=== PATIENT | female | born 1945 | race Caucasian/White ===

== ENCOUNTER → 2018-10-22 | Outpatient (CLI) | payer MEDICARE ==
[2018-10-22 13:32] VITALS: BP 167/74; PULSE 85; RESP 16; TEMP 98.3; BMI 18.4
--- NOTE | 2018-10-22 14:20 | P.GSHP ---
History of Present Illness H&P Date: 10/22/18 Chief Complaint: abnormal ultrasoud right breast Marcie is a 73-year-old white female who on a recent physical examination was noted to have an area of increased nodularity in her right breast. She underwent an ultrasound which revealed a 0.7 x 0.6 cm mass without definitive increased through transmission located within an island of dense tissue. Additionally the patient is noted to have bilateral breast implants present. The patient did have a bilateral breast mammogram which was benign BIRADS 2, mammogram was performed on 10/15/2018. The patient does not feel anything definitive in her breast prior to her primary care doctor finding something. The patient denies any nipple discharge or skin changes. The patient denies any history of trauma or infection in the breast. The patient does have a history of chronic lymphocytic leukemia diagnosed in August 2014. She did have recent IgG infusion related to the leukemia. She is followed by Dr. Street for this, at this time her only treatment as IgG treatments intermittently. 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 MEG 2. gallbladder 3. appy 4. bilateral breast implants (33) 5. exploratory laporatomy Medical History: 1. HTN 2. COPD 3. CLL (chronic of lymphoytic leukemia) 4. skin condition Social History: smoke: 1/PPD for 40 years stopped 7 years ago alcohol: minimal/ patient will wind, Kristin[employer] in her coffee daily drugs: none - Constitutional Constitutional: Denies chills, Denies fever - EENT Eyes: bilateral blurred vision, bilateral pain Ears: bilateral: decreased hearing (can't hear high pitch sounds), deny: tinnitus Ears, nose, mouth and throat: Reports headache - Breasts Breasts: bilateral: as per HPI - Cardiovascular Cardiovascular: Reports high blood pressure, Reports shortness of breath, Denies chest pain - Respiratory Comment: COPD, - Gastrointestinal Gastrointestinal: Reports diarrhea, Denies abdominal pain, Denies nausea, Denies vomiting - Genitourinary (Female) Genitourinary: Denies dysuria, Denies hematuria - Menstruation Menstruation: Reports as per HPI, Reports post hysterectomy - Musculoskeletal Musculoskeletal: Reports myalgias - Integumentary Comment: skin condition, unknown name - Neurological Neurological: Denies numbness, Denies weakness - Psychiatric Psychiatric: Denies anxiety, Denies depression - Endocrine Endocrine: Reports fatigue, Reports weight change - Hematologic/Lymphatic Comment: Ibuprofen, baby aspirin q three days, CLL - Allergic/Immunologic Allergic/Immunologic: Reports as per HPI Past Medical History Past Medical History: Cancer, COPD, Hypertension, Skin Disorder Additional Past Medical History / Comment(s): Chronic lymphocytic leukemia History of Any Multi-Drug Resistant Organisms: None Reported Past Surgical History: Appendectomy, Breast Surgery, Cholecystectomy, Hysterectomy Additional Past Surgical History / Comment(s): Breast implants, laparotomy Past Anesthesia/Blood Transfusion Reactions: Motion Sickness Past Psychological History: PTSD Additional Psychological History / Comment(s): Pt. states claustrophobic Smoking Status: Former smoker Past Alcohol Use History: Occasional Past Drug Use History: None Reported - Past Family History Father Family Medical History: Myocardial Infarction ([place]) Brother(s) Family Medical History: Myocardial Infarction ([place]) Medications and Allergies Home Medications Medication Instructions Recorded Confirmed Type Albuterol Inhaler [Ventolin Hfa 1 - 2 puff INHALATION RT-Q6H PRN 10/15/18 History Inhaler] Albuterol Nebulized [Ventolin 1.25 mg INHALATION DAILY 10/15/18 10/22/18 History Nebulized] Aspirin 81 mg PO DAILY 10/15/18 10/22/18 History Budesonide-Formot 160-4.5 Mcg 2 puff INHALATION BID 10/15/18 10/22/18 History [Symbicort 160-4.5 Mcg Inhaler] Carvedilol [Coreg] 3.125 mg PO BID 10/15/18 10/22/18 History Losartan [Cozaar] 50 mg PO BID 10/15/18 10/22/18 History Tiotropium 18 Mcg/Puff [Spiriva] 1 puff INHALATION DAILY 10/15/18 10/22/18 History amLODIPine [Norvasc] 10 mg PO DAILY 10/15/18 10/22/18 History Cholecalciferol [Vitamin D3] 1,000 unit PO DAILY 10/22/18 10/22/18 History Ibuprofen [Motrin Ib] 200 mg PO DAILY PRN 10/22/18 10/22/18 History Levofloxacin [Levaquin] 500 mg PO DAILY 10/22/18 10/22/18 History Multivitamins, Thera [Multivitamin 1 tab PO DAILY 10/22/18 10/22/18 History (formulary)] diphenhydrAMINE [Benadryl] 25 mg PO HS PRN 10/22/18 10/22/18 History Allergies Allergy/AdvReac Type Severity Reaction Status Date / Time No Known Allergies Allergy Verified 10/22/18 13:19 Surgical - Exam Vital Signs Temp Pulse Resp BP Pulse Ox 98.3 F 85 16 167/74 97 10/22/18 13:25 10/22/18 13:25 10/22/18 13:25 10/22/18 13:25 10/22/18 13:25 BMI 18.5 - General no distress, cachectic - Eyes normal ocular movement - ENT normal pinna, normal nares - Neck Small nodes bilateral anterior neck no masses, trachea midline - Respiratory normal respiratory effort, clear to auscultation - Cardiovascular Rhythm: regular Heart Sounds: normal: S1, S2 - Abdomen Spleen is prominent Abdomen: soft - Integumentary Patient has some ecchymotic areas over her arms bilaterally as well as some dry skin light patches which she has seen a video game producer for and is uncertain of the name of the condition - Neurologic no disoriented, no combative - Musculoskeletal normal gait, normal posture - Psychiatric oriented to time, oriented to person, oriented to place, speech is normal, memory intact Breast examination: Right breast: Patient has a breast implant multi-positional exam reveals some slight increased nodularity at the 10 o'clock position up proximally 6 cm from the nipple areolar complex otherwise no dominant masses or nodules of concern Right axilla: Shoddy adenopathy to the CLL Left breast: Multi-positional exam reveals patient is a implant and no dominant masses or nodules of concern Left axilla: Shoddy adenopathy believed related to the CLL Results Agreement ultrasound results of the breast reviewed Assessment and Plan Assessment: Impression: 1. Radiographic abnormality as well as palpable abnormality right breast 2. Chronic lymphocytic leukemia 3. COPD 4. Ecchymosis and chronic skin condition uncertain of the name Plan: 1. Ultrasound-guided core biopsy of the right breast 2. Medical management of CLL 3. Medical management of medical conditions 4. follow up after biopsy The patient is going to stop her aspirin and ibuprophen prior to biopsy of the breast. She and her daughter understand the risks and benefits and wished to proceed. Cc: Dr. Patino, Dr. Street, Dr. Spangler
== END ==
LOC: WWCWWP 12:23
PROVIDERS: ATTEND Surgery
DX: Z53.9 Procedure and treatment not carried out, unspecified reason (principal)

== ENCOUNTER 2018-11-16 07:53 | Day surgery (SDC) | payer MEDICARE ==
[2018-11-12 13:31] VITALS: BMI 17.9
[~2018-11-16 07:53] MED LIST: ALPRAZolam 0.5 MG TAB PO PRN; DEXAMETHASONE SOD PHOSPHATE 10 MG/ML 1 ML VIAL IV ONE; HEPARIN SODIUM,PORCINE 5,000 UNIT/ML 1 ML VIAL SQ ONE; LACTATED RINGERS 1,000 ML IV SCH; LIDOCAINE 1% 20 ML VIAL (10MG/ML) FOR IV START INTRADERMA PRN; MIDAZOLAM 2 MG/2 ML VIAL IV PRN; Pre Op ABX Message 1 EACH MISC MISCELLANE ONE; fentaNYL (PF) 50 MCG/ML 2 ML AMP IV PRN
[2018-11-16] MEDS ORDERED: ALPRAZolam 0.25 MG TAB PO ONE (09:18)
[2018-11-16] MEDS ORDERED: ONDANSETRON 4 MG/2 ML VIAL IVP ONE (09:18)
[2018-11-16] MEDS ORDERED: LIDOCAINE 1% INJ 10MG/ML (20 ML MDV) SQ ONE ×3 (09:56→12:18)
[2018-11-16] MEDS ORDERED: SODIUM BICARB 4% 5 ML VIAL (0.48 MEQ/ML) MISCELLANE ONE (09:56)
[2018-11-16] MEDS ORDERED: HEPARIN SODIUM,PORCINE 5,000 UNIT/ML 1 ML VIAL SQ ONE (10:51)
--- NOTE | 2018-11-16 10:52 | P.PN ---
Progress Note - Text Progress Note Date: 11/16/18 The patient has a history of CLL. Her case was discussed with Dr. Street. After discussion with Dr. Street it was felt that the patient did not need any preoperative evaluation or treatment of the CLL.
[2018-11-16] MEDS ORDERED: SUCCINYLCHOLINE CHLORIDE 100 MG/5 ML SYR IV ONE (11:26)
[2018-11-16] MEDS ORDERED: LIDOCAINE 1% INJ 10MG/ML (20 ML MDV) ONE (11:26)
[2018-11-16] MEDS ORDERED: fentaNYL (PF) 50 MCG/ML 2 ML AMP ONE (11:26)
[2018-11-16] MEDS ORDERED: PROPOFOL 10 MG/ML 20 ML VIAL IV ONE (11:26)
[2018-11-16] MEDS ORDERED: PHENYLEPHRINE-0.9% NACL SYG 1 MG/10 ML SYRINGE ONE (11:26)
[2018-11-16] MEDS ORDERED: MIDAZOLAM 2 MG/2 ML VIAL ONE (11:26)
--- NOTE | 2018-11-16 12:28 | P.OP ---
Date of Procedure: 11/16/18 Preoperative Diagnosis: Right breast radiographic abnormality Postoperative Diagnosis: Same Procedure(s) Performed: Needle localization excision of lesion of concern and right breast Anesthesia: DAPHNEA Surgeon: Dora Bertrand Estimated Blood Loss (ml): 7 IV fluids (ml): 600 Pathology: other (Breast tissue) Condition: stable Disposition: PACU Indications for Procedure: Radiographic abnormality right breast Operative Findings: Implant close to the area of needle localization Description of Procedure: Marcie is a 73-year-old white female who presented with a mammographic abnormality right breast. The area of concern is very close to the chest wall and very close to the breast implant. After review with radiology they felt the safest approach was needle localization and excision in the operating room secondary to the location. This was discussed with the patient and she agreed. The risks and benefits of the procedure were discussed with the patient. The patient was seen in the radiology department and needle localization of the area of concern was performed. The patient was taken to the operating room and following induction of anesthesia the right breast was prepped and draped in a sterile fashion. An incision was made and carried down to the shaft of the needle. This was brought into the incision and using an Allis the area of the distal end of the needle was grasped. Using the electrocautery device dissection was performed close to the area of the chest wall and of the implant. The area of concern was removed. After we were assured that hemostasis was attained a titanium clip was placed to aimee the area. The deep tissues were closed using 3-0 Vicryl suture. The skin was closed using 4-0 Monocryl. The specimen was sent to radiology for confirmation the area of concern had been removed was obtained. Prior to this the specimen was painted. It should be noted the specimen was very small and the paint overlapped each other at some margins this was discussed with pathology. All instrument and sponge counts were correct at the end of the case. The patient tolerated the case in stable condition.
--- NOTE | 2018-11-16 12:30 | P.DS ---
Providers Attending physician: Dora Bertrand Primary care physician: Rosa M Pina Plan - Discharge Summary Discharge Rx Participant: No New Discharge Prescriptions: No Action Aspirin 81 mg PO DAILY Budesonide-Formot 160-4.5 Mcg [Symbicort 160-4.5 Mcg Inhaler] 2 puff INHALATION BID Albuterol Inhaler [Ventolin Hfa Inhaler] 1 - 2 puff INHALATION RT-Q6H PRN PRN Reason: Shortness Of Breath amLODIPine [Norvasc] 10 mg PO DAILY Tiotropium 18 Mcg/Puff [Spiriva] 1 puff INHALATION DAILY Carvedilol [Coreg] 3.125 mg PO BID Losartan [Cozaar] 50 mg PO BID Albuterol Nebulized [Ventolin Nebulized] 1.25 mg INHALATION DAILY PRN PRN Reason: copd sx diphenhydrAMINE [Benadryl] 25 mg PO HS PRN PRN Reason: Sedation Multivitamins, Thera [Multivitamin (formulary)] 1 tab PO DAILY Levofloxacin [Levaquin] 500 mg PO DAILY PRN PRN Reason: FEVER, SIGN OF INFECTION Ibuprofen [Motrin Ib] 400 mg PO DAILY PRN PRN Reason: Pain Cholecalciferol [Vitamin D3] 1,000 unit PO DAILY Discharge Medication List Albuterol Inhaler [Ventolin Hfa Inhaler] 1 - 2 puff INHALATION RT-Q6H PRN [History] Albuterol Nebulized [Ventolin Nebulized] 1.25 mg INHALATION DAILY PRN 10/15/18 [ History] Aspirin 81 mg PO DAILY 10/15/18 [History] Budesonide-Formot 160-4.5 Mcg [Symbicort 160-4.5 Mcg Inhaler] 2 puff INHALATION BID 10/15/18 [History] Carvedilol [Coreg] 3.125 mg PO BID 10/15/18 [History] Losartan [Cozaar] 50 mg PO BID 10/15/18 [History] Tiotropium 18 Mcg/Puff [Spiriva] 1 puff INHALATION DAILY 10/15/18 [History] amLODIPine [Norvasc] 10 mg PO DAILY 10/15/18 [History] Cholecalciferol [Vitamin D3] 1,000 unit PO DAILY 10/22/18 [History] Ibuprofen [Motrin Ib] 400 mg PO DAILY PRN 10/22/18 [History] Levofloxacin [Levaquin] 500 mg PO DAILY PRN 10/22/18 [History] Multivitamins, Thera [Multivitamin (formulary)] 1 tab PO DAILY 10/22/18 [History ] diphenhydrAMINE [Benadryl] 25 mg PO HS PRN 10/22/18 [History] Follow up Appointment(s)/Referral(s): Dora Bertrand MD [STAFF PHYSICIAN] - 1 Week Activity/Diet/Wound Care/Special Instructions: Patient may shower after 48 hours Wear bra at all times until seen by Dr. Jason unless showering Discharge Disposition: HOME SELF-CARE
[2018-11-16 12:48] VITALS: TEMP 98.6
[2018-11-16 13:03] VITALS: RESP 18
[2018-11-16] MEDS ORDERED: SODIUM CHLORIDE 0.9% 1,000 ML IV ONE (13:18)
[2018-11-16 13:58] VITALS: PULSE 100
[2018-11-16 14:07] VITALS: BP 142/65
--- NOTE | 2018-11-16 15:00 | USB ---
EXAMINATION TYPE: US breast localization RT DATE OF EXAM: 11/16/2018 COMPARISON: Outside ultrasound 09/30/2018 CLINICAL HISTORY: N63, PALP MASS, R92.8, ABN MAMM. Technique: Real-time linear array sonography over the right breast upper outer quadrant Findings: The lobular hypoechoic areas again identified near the junction of the breast prosthesis with chest wall. The procedure was explained to the patient. The risks complications and benefits , questions were answered. Written and verbal informed consent was obtained. The risk of prosthesis puncture with the needle or wire from localization, the the needle for anastomosis is a shallow was discussed. The patient was to proceed. Timeout was performed. Under ultrasound guidance following anesthetization 4% lidocaine with sodium bicarbonate needle was placed into the lesion at the 10:00 position. The wire was placed through the needle under ultrasound guidance. At the request the referring physician a mammogram post procedure was obtained. Wire is within the right breast. Patient was transferred to presurgical holding having tolerated procedure very well. Specimen: Ultrasound specimen is obtained. There is a wire present within the specimen. The distal tip of the wire appears to be visualized within the lesion localized. IMPRESSIONS: 1. Successful ultrasound-guided wire localization right breast lesion o'clock position Recommendations: 1. Recommendations are pending pathology results. Pathology Results: Benign A. RIGHT BREAST, NEEDLE LOCALIZATION, LUMPECTOMY: Proliferative fibrocystic spectrum changes including usual duct hyperplasia. B. RIGHT BREAST TISSUE, EXCISION: Proliferative spectrum fibrocystic changes with areas of usual duct hyperplasia showing significant biopsy artifact. Recommendation Follow up mammogram of the right breast in 6 months. JAN
--- NOTE | 2018-11-16 15:01 | USB ---
EXAMINATION TYPE: US breast localization RT DATE OF EXAM: 11/16/2018 COMPARISON: Outside ultrasound 09/30/2018 CLINICAL HISTORY: N63, PALP MASS, R92.8, ABN MAMM. Technique: Real-time linear array sonography over the right breast upper outer quadrant Findings: The lobular hypoechoic areas again identified near the junction of the breast prosthesis wi th chest wall. The procedure was explained to the patient. The risks complications and benefits, questions were answ ered. Written and verbal informed consent was obtained. The risk of prosthesis puncture with the need le or wire from localization, the the needle for anastomosis is a shallow was discussed. The patient was to proceed. Timeout was performed. Under ultrasound guidance following anesthetization 4% lidocaine with sodium bicarbonate needle was p laced into the lesion at the 10:00 position. The wire was placed through the needle under ultrasound guidance. At the request the referring physician a mammogram post procedure was obtained. Wire is within the ri ght breast. Patient was transferred to presurgical holding having tolerated procedure very well. Specimen: Ultrasound specimen is obtained. There is a wire present within the specimen. The distal ti p of the wire appears to be visualized within the lesion localized. IMPRESSIONS: 1. Successful ultrasound-guided wire localization right breast lesion o'clock position Recommendations: 1. Recommendations are pending pathology results.
--- NOTE | 2018-11-16 15:07 | MM ---
Reason for exam: additional evaluation requested from abnormal screening. [facility] Diagnostic Mammo RT Wo CAD CC and LM view(s) were taken of the right breast. ASSESSMENT: Post procedure mammogram for marker placement RECOMMENDATION: Ultrasound of the right breast in 6 months. PENDING PATHOLOGY RESULTS.
== END 2018-11-16 14:30 | disposition home or self-care (01) ==
LOC: OR 07:53
PROVIDERS: ATTEND Surgery
DX: N60.11 Diffuse cystic mastopathy of right breast (principal); N60.91 Unspecified benign mammary dysplasia of right breast; Z98.82 Breast implant status; C91.10 Chronic lymphocytic leukemia of B-cell type not having achieved remission; J44.9 Chronic obstructive pulmonary disease, unspecified; R58 Hemorrhage, not elsewhere classified; L98.9 Disorder of the skin and subcutaneous tissue, unspecified; I10 Essential (primary) hypertension; F43.10 Post-traumatic stress disorder, unspecified; Z79.82 Long term (current) use of aspirin; Z79.51 Long term (current) use of inhaled steroids; Z79.899 Other long term (current) drug therapy; Z79.2 Long term (current) use of antibiotics; Z90.49 Acquired absence of other specified parts of digestive tract; Z90.710 Acquired absence of both cervix and uterus; Z87.891 Personal history of nicotine dependence
CPT/HCPCS: 77065; 76999; 19285; 19125; J2250; J1644; J1100; J2405; J2001; J3010; J2370; J0330; J2704; 88305; 88307

== ENCOUNTER → 2018-11-26 | Outpatient (CLI) | payer MEDICARE ==
[2018-11-26 11:04] VITALS: BP 137/70; PULSE 87; RESP 18; TEMP 98.1; BMI 18.1
--- NOTE | 2018-11-26 11:32 | P.PN ---
Subjective Progress Note Date: 11/26/18 Marcie is a 73-year-old white female who is status post right breast needle local excisional biopsy of an area of concern. This was done 11-16-18. Pathology revealed proliferative fibrocystic spectrum changes with usual ductal hyperplasia. The patient has no complaints related to the biopsy at this time. The lesion was very close to a subpectoral implant and the pectoralis muscle. There was a probable change as well as radiographic abnormality, both of which were removed and the same biopsy. I discussed with the patient and her daughter that we certainly sampled the area but there is some concern as there is nothing benign specific that biopsy of the actual lesion was preformed. They understand this and at this time we are going to wait and repeat the mammogram and ultrasound of the right breast in 6 months. Objective - Vital Signs Vital signs: Vital Signs Temp 98.1 F 11/26/18 10:58 Pulse 87 11/26/18 10:58 Resp 18 11/26/18 10:58 BP 137/70 11/26/18 10:58 Pulse Ox 94 L 11/26/18 10:58 Intake & Output 11/25/18 11/26/18 11/26/18 18:59 06:59 18:59 Weight 50.802 kg - Constitutional General appearance: Present: thin - EENT Eyes: Present: EOMI ENT: Present: hearing grossly normal - Respiratory Respiratory: bilateral: CTA - Cardiovascular Rhythm: regular Heart sounds: normal: S1, S2 - Integumentary Integumentary Comment(s): Incision clean and dry No evidence of infection No ecchymosis or hematoma - Psychiatric Psychiatric: Present: A&O x's 3, appropriate affect, intact judgment & insight Assessment and Plan Assessment: Impression: 1. Radiographic abnormality as well as palpable change right breast removed via open biopsy 2. CLL 3. Disseminated superficial actinic porokeratosis 4. COPD Plan: 1. Benign pathology on open biopsy right breast 2. Repeat right breast mammogram and ultrasound in 6 months 3. Medical management of medical conditions Cc: Dr. Patino
== END ==
LOC: WWCWWP 11-25 11:33
PROVIDERS: ATTEND Surgery
DX: Z53.9 Procedure and treatment not carried out, unspecified reason (principal)

== ENCOUNTER 2021-04-24 11:42 | Observation (INO) | payer MEDICARE ==
[2021-04-24] MEDS ORDERED: HYDROmorphone 0.5 MG/0.5 ML SYRINGE IVP PRN (12:16)
[2021-04-24] MEDS ORDERED: ONDANSETRON 4 MG/2 ML VIAL IVP PRN ×2 (12:16→13:25)
[2021-04-24] MEDS ORDERED: NALOXONE 0.4 MG/ML 1 ML VIAL IV PRN (12:16)
--- NOTE | 2021-04-24 12:16 | ED ---
General Adult HPI - General Chief complaint: Abdominal Pain Stated complaint: abd pain Time Seen by Provider: 04/24/21 11:53 Source: patient, RN/MD (I did speak with transferring physician), RN notes reviewed, old records reviewed (Reports reviewed from [facility]) Mode of arrival: ambulatory Limitations: no limitations - History of Present Illness Initial comments: Patient is a pleasant 75-year-old female presenting to the emergency Department with complaints of abdominal discomfort. Symptoms started around 3 days ago. Symptoms are somewhat similar to her previous gallbladder problems which were is removed years ago. Patient was seen at [facility] today with abnormal computed tomography scan and was transferred to us for GI evaluation. Patient states following medication discomfort is improved and is only mild at this time. Patient has had some mild nausea, no vomiting, none at this time. No fevers. - Related Data Home Medications Medication Instructions Recorded Confirmed Albuterol Inhaler (Mhu) [Ventolin 1 - 2 puff INHALATION RT-Q6H PRN 10/15/18 11/26/18 Hfa Inhaler] Albuterol Nebulized [Ventolin 1.25 mg INHALATION DAILY PRN 10/15/18 11/26/18 Nebulized] Budesonide-Formot 160-4.5 Mcg 2 puff INHALATION BID 10/15/18 11/26/18 [Symbicort 160-4.5 Mcg Inhaler] Losartan [Cozaar] 50 mg PO BID 10/15/18 11/26/18 Tiotropium 18 Mcg/Puff [Spiriva] 1 puff INHALATION DAILY 10/15/18 11/26/18 amLODIPine [Norvasc] 10 mg PO DAILY 10/15/18 11/26/18 carvediloL [Coreg] 3.125 mg PO BID 10/15/18 11/26/18 Cholecalciferol [Vitamin D3] 1,000 unit PO DAILY 10/22/18 11/26/18 Ibuprofen [Motrin Ib] 400 mg PO DAILY PRN 10/22/18 11/26/18 Levofloxacin [Levaquin] 500 mg PO DAILY PRN 10/22/18 11/26/18 Multivitamins, Thera [Multivitamin 1 tab PO DAILY 10/22/18 11/26/18 (formulary)] diphenhydrAMINE [Benadryl] 25 mg PO HS PRN 10/22/18 11/26/18 Allergies Allergy/AdvReac Type Severity Reaction Status Date / Time No Known Allergies Allergy Verified 04/24/21 11:46 Review of Systems ROS Statement: Those systems with pertinent positive or pertinent negative responses have been documented in the HPI. ROS Other: All systems not noted in ROS Statement are negative. Constitutional: Denies: fever Eyes: Denies: eye pain ENT: Denies: ear pain Respiratory: Denies: cough Cardiovascular: Denies: chest pain Endocrine: Denies: fatigue Gastrointestinal: Reports: as per HPI, abdominal pain. Denies: vomiting Genitourinary: Denies: dysuria Musculoskeletal: Denies: back pain Skin: Denies: rash Neurological: Denies: weakness Past Medical History Past Medical History: Cancer, COPD, Hypertension, Skin Disorder Additional Past Medical History / Comment(s): Chronic lymphocytic leukemia. CYST RT KIDNEY. BURSITIS SHOULDERS. DISSEMINATED ACTINIC POROKERATOSIS SKIN COND, CHUCKY ARMS. BRUISES EASILY. RT BREAST MASS CURRENTLY. History of Any Multi-Drug Resistant Organisms: None Reported Past Surgical History: Appendectomy, Breast Surgery, Cholecystectomy, Hysterectomy Additional Past Surgical History / Comment(s): Breast implants, laparotomy Past Anesthesia/Blood Transfusion Reactions: Motion Sickness Past Psychological History: PTSD Smoking Status: Never smoker Past Alcohol Use History: Occasional Past Drug Use History: None Reported - Past Family History Father Family Medical History: Myocardial Infarction ([place]) Brother(s) Family Medical History: Myocardial Infarction ([place]) General Exam Limitations: no limitations General appearance: alert, in no apparent distress Head exam: Present: normocephalic Eye exam: Present: normal appearance Respiratory exam: Present: normal lung sounds bilaterally Cardiovascular Exam: Present: regular rate GI/Abdominal exam: Present: soft, tenderness (Mild to moderate epigastric tenderness). Absent: distended Extremities exam: Present: normal inspection Neurological exam: Present: alert Psychiatric exam: Present: normal affect, normal mood Skin exam: Present: normal color Course Vital Signs 04/24/21 11:44 Temperature 98.2 F Pulse Rate 95 Respiratory 20 Rate Blood Pressure 155/77 O2 Sat by Pulse 97 Oximetry Medical Decision Making - Medical Decision Making Patient updated on results and plan. Case was discussed in detail with Dr. villanueva, who will admit covered for Dr. Palm. Disposition Clinical Impression: Dilated bile duct Disposition: ADMITTED IP TO THIS HOSP Is patient prescribed a controlled substance at d/c from ED?: No Referrals: Anne Marie Palm MD [Primary Care Provider] - 1-2 days Decision Time: 12:15
[2021-04-24] MEDS ORDERED: SODIUM CHLORIDE 0.9% 1,000 ML IV SCH (12:30)
[2021-04-24] MEDS ORDERED: MIRTAZAPINE 15 MG TAB PO PRN (13:23)
[2021-04-24] MEDS ORDERED: PANTOPRAZOLE 40 MG TABLET PO PRN (13:23)
[2021-04-24] MEDS ORDERED: Acetaminophen-Codeine 300-30mg TAB PO PRN (13:23)
[2021-04-24] MEDS: LACTATED RINGERS 1,000 ML IV SCH ×2 (13:42→20:44)
[2021-04-24] MEDS ORDERED: ENOXAPARIN 40 MG/0.4 ML SYRINGE SQ SCH (13:45)
[2021-04-24] MEDS ORDERED: diazePAM 5 MG TAB PO STA (14:17)
[2021-04-24] MEDS ORDERED: HYDROmorphone 1 MG/ML 1 ML SYRINGE IVP PRN (14:29)
--- NOTE | 2021-04-24 15:33 | P.CONS ---
History of Present Illness - Reason for Consult Consult date: 04/24/21 CBD dilation Requesting physician: Giovani Winn - Chief Complaint Abdominal pain - History of Present Illness This is a pleasant 75-year-old white female who was a transfer from [facility] for complaints of abdominal pain, she is status post cholecystectomy in the for cholelithiasis. She had a CT of the abdomen after [facility] that showed status post cholecystectomy with extrahepatic and intrahepatic biliary ductal dilation. There is diffuse increased common bile duct dilation measuring up to 9 mm, versus 05/15/2020 CT comparison went it measured up to 6 mm. Recommend MRCP with and without contrast for further evaluation. In determining hypodense lesion of the right kidney measuring 2.0 cm, findings could be further evaluated on follow-up MRCP. Redemonstrated. Portal lymphadenopathy and splenomegaly. The patient states she had severe epigastric pain that is radiating to her back and along her chest that started Thursday night that is associated with nausea and bilious vomiting. She has no history of peptic ulcer disease, no prior EGDs, no NSAID use, and denies any anticoagulation. Today's labs at [facility] showed WBC 13.18, hemoglobin 14.5, hematocrit 44.9, platelet count 146,000, INR 1.03, total bilirubin 0.5, alkaline phosphatase 80, AST 22, ALT 21, lipase 27. Review of Systems REVIEW OF SYSTEMS: CARDIOPULMONARY: No chest pain or shortness of breath. Gastrointestinal: Sharp epigastric pain associated with nausea and vomiting. No hematemesis, coffee-ground emesis. No rectal bleeding, or melena. GENITOURINARY: No dysuria or hematuria. MUSCULOSKELETAL: Reports normal range of motion., Joint pain. SKIN: No rashes. No jaundice. ENDOCRINE: No chills, fevers. No excessive weight gain or loss. No polydipsia or polyuria. PSYCHIATRIC: Unremarkable. NEUROLOGY: No change in mental status. Denies dizziness, headache. ENT: Vision unremarkable. CONSTITUTIONAL: No recent weight loss. No fever, chills, night sweats. Past Medical History Past Medical History: Cancer, COPD, Hypertension, Skin Disorder Additional Past Medical History / Comment(s): Chronic lymphocytic leukemia. CYST RT KIDNEY. BURSITIS SHOULDERS. DISSEMINATED ACTINIC POROKERATOSIS SKIN COND, CHUCKY ARMS. BRUISES EASILY. RT BREAST MASS CURRENTLY. History of Any Multi-Drug Resistant Organisms: None Reported Past Surgical History: Appendectomy, Breast Surgery, Cholecystectomy, Hysterectomy Additional Past Surgical History / Comment(s): Breast implants, laparotomy Past Anesthesia/Blood Transfusion Reactions: Motion Sickness Past Psychological History: Anxiety, PTSD Additional Psychological History / Comment(s): Pt. states claustrophobic Smoking Status: Former smoker Past Alcohol Use History: Occasional Additional Past Alcohol Use History / Comment(s): SMOKED 40 YEARS, 1 PPD, QUIT 2011 Past Drug Use History: None Reported - Past Family History Father Family Medical History: Myocardial Infarction ([place]) Brother(s) Family Medical History: Myocardial Infarction ([place]) Medications and Allergies Home Medications Medication Instructions Recorded Confirmed Type Tiotropium 18 Mcg/Puff [Spiriva] 1 puff INHALATION RT-DAILY 10/15/18 04/24/21 History amLODIPine [Norvasc] 10 mg PO DAILY 10/15/18 04/24/21 History Cholecalciferol [Vitamin D3] 5,000 unit PO DAILY 10/22/18 04/24/21 History Levofloxacin [Levaquin] 500 mg PO DAILY PRN 10/22/18 04/24/21 History Multivitamins, Thera [Multivitamin 1 tab PO DAILY 10/22/18 04/24/21 History (formulary)] Acetaminophen-Codeine 300-30mg 1 tab PO Q8H PRN 04/24/21 04/24/21 History [Tylenol w/codeine #3] Albuterol Sulfate [Ventolin HFA] 2 puff INHALATION RT-Q4H PRN 04/24/21 04/24/21 History Budesonide/Formoterol Fumarate 2 puff INHALATION RT-BID 04/24/21 04/24/21 History [Symbicort 80-4.5 Mcg Inhaler] Losartan Potassium 100 mg PO DAILY 04/24/21 04/24/21 History Mirtazapine [Remeron] 15 mg PO HS PRN 04/24/21 04/24/21 History Omeprazole 40 mg PO DAILY PRN 04/24/21 04/24/21 History Ondansetron [Zofran] 4 mg PO Q6H PRN 04/24/21 04/24/21 History Allergies Allergy/AdvReac Type Severity Reaction Status Date / Time No Known Allergies Allergy Verified 04/24/21 12:37 Physical Exam Vitals: Vital Signs Temp Pulse Pulse Resp BP BP Pulse Ox 04/24/21 14:00 98.0 F 98 19 170/81 92 L 04/24/21 11:44 98.2 F 95 20 155/77 97 Intake and Output 04/24/21 04/24/21 04/24/21 06:59 14:59 22:59 Other: Weight 50.802 kg General appearance: The patient is alert, oriented, appears in no acute distress. HET: Head is normocephalic and atraumatic. Conjunctiva pink. Sclera anicteric. Neck: Supple without lymphadenopathy. Trachea midline. Heart: S1 S2. Regular rate and rhythm. Lungs: Clear to auscultation. Abdomen: Soft, epigastric tenderness, nondistended with bowel sounds. No guarding or rigidity. Skin: No rashes. No jaundice. Extremities: Normal skin color and turgor. No pedal edema. Neurological: No focal deficits. Alert and oriented 3.. Assessment and Plan (1) Abdominal pain Narrative/Plan: 45-year-old female who is a transfer from [facility] with complaints of severe epigastric pain, who is status post cholecystectomy in the for cholelithiasis. Patient states pain started Thursday night and is sharp in the epigastric region. She has had associated nausea and vomiting, denies any coffee-ground emesis or hematemesis. She has no previous history of peptic ulcer disease, no previous upper endoscopies or NSAID use. She had a CT of the abdomen at [facility] that shows she is status post cholecystectomy with extrahepatic and intrahepatic biliary ductal dilation. Diffused increased common bile duct dilation measuring up to 9 mm, versus 05/15/2020 CT comparison when it measured up to 6 mm, recommend MRCP with and without contrast. Patient was transferred to undergo MRCP. LFTs are unremarkable. Labs are not consistent with CBD obstruction, will proceed with MRCP. Current Visit: Yes Status: Acute Code(s): R10.9 - UNSPECIFIED ABDOMINAL PAIN SNOMED Code(s): 14081861 (2) Dilated bile duct Current Visit: Yes Status: Acute Code(s): K83.8 - OTHER SPECIFIED DISEASES OF BILIARY TRACT SNOMED Code(s): 388778061 Plan: 1. May have clear liquid diet after MRCP then nothing by mouth after midnight 2. MRCP ordered 3. Continue symptomatic and supportive care 4. Pain medications as needed 5. Repeat CMP in the morning 6. Please give Valium 5 mg prior to MRCP for symptoms of claustrophobia Thank you for this consultation, we will continue to follow Dr. Stefania Alvarado I agree with the dictator's note, documented as a scribe by Gretchen Mejia.
--- NOTE | 2021-04-24 17:24 | P.HPIM ---
History of Present Illness H&P Date: 04/24/21 Chief Complaint: Upper abdominal pain History of presenting complaint: This is a very pleasant 75-year-old patient who follows with Dr. Sheba Palm. Chronic stable medical conditions include CLL that she follows with Dr. Lipscomb while, hypertension, osteoarthritis, COPD with Dr. Spangler. Patient on home oxygen 2 L at night. Patient is accompanied by her daughter at the bedside. Patient started to have progressively worsening epigastric pain for 3 days. Describes it being sharp. Going through the back. Patient initially transferred to [facility] where she did have a computed tomography scan. She is fine to have intermittent or extrahepatic biliary duct dilatation and common bile duct 9 mm. She was transferred here for further workup. Denies any fever and chills. Patient has a prior history of cholecystectomy. GI was consulted. Patient's had a decreased appetite for some time. No obvious weight loss. Review of systems: GEN.: Tired EYES: None HEENT: None NECK: None RESPIRATORY: None CARDIOVASCULAR: None GASTROINTESTINAL: [As above GENITOURINARY: None MUSCULOSKELETAL: Joint pains LYMPHATICS: None HEMATOLOGICAL: None PSYCHIATRY: None NEUROLOGICAL: None Past medical history to include: COPD, hypertension, CLL, shoulder bursitis, actinic keratosis, right breast mass being worked up, anxiety Social history: Lives with her daughter. Smoked a pack a day for 40 years stopped in 2011. Alcohol occasionally. Family history: Myocardial infarction Physical examination: VITAL SIGNS: 98.2, 95, 20, 155/77, 97% room air GENERAL: BMI 18.1, sitting on bed, uncomfortable throwing up. EYES: Pupils equal. Conjunctiva normal. HEENT: External appearance of nose and ears normal, oral cavity grossly normal. NECK: JVD not raised; masses not palpable. HEART: First and second heart sounds are normal; no edema. LUNGS: Respiratory rate normal; decreased breath sound. ABDOMEN: Soft, epigastric tenderness, no guarding rigidity, liver spleen not palpable, no masses palpable. PSYCH: [Alert and oriented x3; mood and affect slightly anxious l. MUSCULAR skeletal: Evidence of OA NEUROLOGICAL: Cranial nerves grossly intact; no facial asymmetry, power and sensation grossly intact. LYMPHATICS: No lymph nodes palpable in the axilla and neck INVESTIGATIONS, reviewed in the clinical context: [From [facility]] White count 13.1 hemoglobin 14.5 platelets 146 sodium 138 potassium 3.8 BUN 10 creatinine 0.86 AST 22 ALT 21 troponin I less than 0.03, bilirubin 0.5 UA unremarkable EKG tracing personally reviewed by me-normal sinus rhythm Computed tomography scan of the abdomen showing extra and intrahepatic biliary dilatation, CBD 9 mm. Cholecystectomy. Periportal lymphadenopathy and splenomegaly Assessment and plan: -Severe patient presented to 3 days of increasing epigastric pain associated with nausea vomiting. Has history of cholecystectomy along with dilated intra- and extrahepatic. Duct dilatation, common bile duct dilatation. LFTs and bilirubin is normal. No fever no chills. Periportal lymphadenopathy. Stenosis/mass at the junction of the pancreas in the differential. No clinical evidence of infection at this point. GI consulted. -COPD in a ex-smoker Continue Symbicort, bronchodilator -Essential hypertension Continue amlodipine, losartan -Chronic lymphocytic leukemia Follow CBC. Patient does follow with Dr. Perkins /outpatient. -Actinitic keratosis -Chronic insomnia On Remeron Patient put on IV fluids. Nothing by mouth except for ice chips. GI consulted. Zofran for nausea. Home medications resumed. Dilaudid for pain medication. Hold off any antibiotics for now. Lovenox for DVT prophylaxis. Care was discussed with the patient daughter the bedside. Questions answered. - Past Medical History Past Medical History: Cancer, COPD, Hypertension, Skin Disorder Additional Past Medical History / Comment(s): Chronic lymphocytic leukemia. CYST RT KIDNEY. BURSITIS SHOULDERS. DISSEMINATED ACTINIC POROKERATOSIS SKIN COND, CHUCKY ARMS. BRUISES EASILY. RT BREAST MASS CURRENTLY. History of Any Multi-Drug Resistant Organisms: None Reported Past Surgical History: Appendectomy, Breast Surgery, Cholecystectomy, Hysterectomy Additional Past Surgical History / Comment(s): Breast implants, laparotomy Past Anesthesia/Blood Transfusion Reactions: Motion Sickness Past Psychological History: Anxiety, PTSD Additional Psychological History / Comment(s): Pt. states claustrophobic Smoking Status: Former smoker Past Alcohol Use History: Occasional Additional Past Alcohol Use History / Comment(s): SMOKED 40 YEARS, 1 PPD, QUIT 2011 Past Drug Use History: None Reported - Past Family History Father Family Medical History: Myocardial Infarction ([place]) Brother(s) Family Medical History: Myocardial Infarction ([place]) Medications and Allergies Home Medications Medication Instructions Recorded Confirmed Type Tiotropium 18 Mcg/Puff [Spiriva] 1 puff INHALATION RT-DAILY 10/15/18 04/24/21 History amLODIPine [Norvasc] 10 mg PO DAILY 10/15/18 04/24/21 History Cholecalciferol [Vitamin D3] 5,000 unit PO DAILY 10/22/18 04/24/21 History Levofloxacin [Levaquin] 500 mg PO DAILY PRN 10/22/18 04/24/21 History Multivitamins, Thera [Multivitamin 1 tab PO DAILY 10/22/18 04/24/21 History (formulary)] Acetaminophen-Codeine 300-30mg 1 tab PO Q8H PRN 04/24/21 04/24/21 History [Tylenol w/codeine #3] Albuterol Sulfate [Ventolin HFA] 2 puff INHALATION RT-Q4H PRN 04/24/21 04/24/21 History Budesonide/Formoterol Fumarate 2 puff INHALATION RT-BID 04/24/21 04/24/21 History [Symbicort 80-4.5 Mcg Inhaler] Losartan Potassium 100 mg PO DAILY 04/24/21 04/24/21 History Mirtazapine [Remeron] 15 mg PO HS PRN 04/24/21 04/24/21 History Omeprazole 40 mg PO DAILY PRN 04/24/21 04/24/21 History Ondansetron [Zofran] 4 mg PO Q6H PRN 04/24/21 04/24/21 History Allergies Allergy/AdvReac Type Severity Reaction Status Date / Time No Known Allergies Allergy Verified 04/24/21 12:37 Physical Exam Vitals: Vital Signs Temp Pulse Pulse Resp BP BP Pulse Ox 04/24/21 14:00 98.0 F 98 19 170/81 92 L 04/24/21 11:44 98.2 F 95 20 155/77 97 Intake and Output 04/24/21 04/24/21 04/24/21 06:59 14:59 22:59 Other: Weight 50.802 kg Thrombosis Risk Factor Assmnt - Choose All That Apply Each Factor Represents 1 point: Abnormal pulmonary function (COPD) Each Risk Factor Represents 3 Points: Age 75 years or older Thrombosis Risk Factor Assessment Total Risk Factor Score: 4 Thrombosis Risk Factor Assessment Level: Moderate Risk
[2021-04-24] MEDS ORDERED: METOCLOPRAMIDE 5 MG/ML 2 ML VIAL IVP PRN (17:26)
[2021-04-24] MEDS: HYDROmorphone 1 MG/ML 1 ML SYRINGE IVP PRN (17:55)
[2021-04-24] MEDS: FAMOTIDINE 20 MG TAB PO SCH (20:45)
--- NOTE | 2021-04-24 21:38 | XR ---
EXAMINATION TYPE: XR chest 2V DATE OF EXAM: 04/24/2021 COMPARISON: 02/18/2013 INDICATION: COPD TECHNIQUE: Frontal and lateral views of the chest are obtained. FINDINGS: The heart size is normal. The pulmonary vasculature is normal. Mild increased lung markings are in the bilateral lung bases. Calcified breast prostheses are superim posed accentuating these findings. Consider some mild atelectasis or developing noncardiogenic pulmon jeannine edema. IMPRESSION: 1. Increased density at the lung bases accentuated by overlying breast prostheses. Consider mild atel ectasis or atypical noncardiogenic pulmonary edema. Follow-up can be performed as clinically indicate d.
[2021-04-24] MEDS: SYMBICORT 80-4.5 MCG INHALER INHALATION SCH (21:56)
[2021-04-24] MEDS: IPRATROPIUM-ALBUTEROL 3 ML NEB INHALATION SCH (21:56)
[2021-04-25] MEDS: LACTATED RINGERS 1,000 ML IV SCH ×3 (00:20→22:25)
[2021-04-25 06:42] LABS: Prothrombin Time 10.9 sec (9.0-12.0)
[2021-04-25] MEDS: amLODIPine 10 MG TAB PO SCH (07:40)
[2021-04-25] MEDS: HYDROmorphone 1 MG/ML 1 ML SYRINGE IVP PRN (07:40)
[2021-04-25] MEDS: LOSARTAN 50 MG TAB PO SCH (07:40)
[2021-04-25] MEDS: FAMOTIDINE 20 MG TAB PO SCH (07:40)
[2021-04-25 08:57] LABS: Basophils # (A) 0.03 X 10*3/uL (0.00-0.10); Basophils % (A) 0.3 %; Eosinophils # (A) 0.03 X 10*3/uL (0.04-0.35); Eosinophils % (A) 0.3 %; HCT 41.4 % (37.2-46.3); HGB 13.1 g/dL (12.0-15.0); Lymphocytes # (A) 2.87 X 10*3/uL (0.90-5.00); Lymphocytes % (A) 27.6 %; MCH 27.9 pg (27.0-32.0); MCHC 31.6 g/dL (32.0-37.0); MCV 88.1 fL (80.0-97.0); Mean Platelet Volume 10.7 fL (9.5-12.2); Monocytes % (A) 6.7 %; Neutrophils # (A) 6.72 X 10*3/uL (1.80-7.70); Neutrophils % (A) 64.5 %; Platelet Count 119 X 10*3/uL (140-440); RDW 13.3 % (11.5-14.5); WBC 10.41 X 10*3/uL (4.50-10.00)
[2021-04-25] MEDS ORDERED: PANTOPRAZOLE 40 MG/10 ML VIAL IV SCH (09:00)
[2021-04-25] MEDS: IPRATROPIUM-ALBUTEROL 3 ML NEB INHALATION SCH ×3 (09:06→19:32)
[2021-04-25] MEDS: SYMBICORT 80-4.5 MCG INHALER INHALATION SCH ×2 (09:06→19:32)
[2021-04-25 10:51] LABS: African American GFR (CKD) 97.5 (60.0-200.0); Albumin 4.4 g/dL (3.80-4.90); Albumin/Globulin Ratio 2.32 (1.60-3.17); Anion Gap 12.3 mmol/L (4.00-12.00); BUN/Creat Ratio 14.29 Ratio (12.00-20.00); Calcium 8.6 mg/dL (8.7-10.3); Carbon Dioxide 21.7 mmol/L (21.6-31.8); Globulin 1.9 g/dL (1.6-3.3); Non-African American GFR(CKD) 84.2 (60.0-200.0); Potassium 3.9 mmol/L (3.5-5.5); Total Bilirubin 0.6 mg/dL (0.2-1.2); Total Protein 6.3 g/dL (6.2-8.2)
[2021-04-25] MEDS ORDERED: LIDOCAINE 1% INJ 10MG/ML (20 ML MDV) ONE (12:39)
[2021-04-25] MEDS ORDERED: PROPOFOL 10 MG/ML 20 ML VIAL IV ONE (12:39)
[2021-04-25] MEDS ORDERED: IV FLUID CONTINUATION 1,000 ML IV ONE (12:55)
--- NOTE | 2021-04-25 13:18 | P.PCN ---
Date of Procedure: 04/25/21 Procedure(s) Performed: BRIEF HISTORY: Patient is a 75-year-old, pleasant, white female admitted hospital with severe epigastric pain for the last 2 days' duration. She has some nausea but no emesis. CT of abdomen and pelvis showed dilated common bile duct and pancreatic duct however LFTs are within normal limits. Because of the persistent epigastric pain she is scheduled for an upper endoscopy to evaluate further. PROCEDURE PERFORMED: Esophagogastroduodenoscopy. PREOPERATIVE DIAGNOSIS: Epigastric pain of 2 days' duration. IV sedation per anesthesia. PROCEDURE: After informed consent was obtained, the patient was brought into the endoscopy unit. IV sedation was administered by Anesthesia under continuous monitoring. Initially the Olympus GIF-140 video endoscope was inserted into the mouth. Esophagus intubated without any difficulty. It was gradually advanced into the stomach and duodenum and carefully examined. The bulb and the second part of the duodenum appeared normal. The scope at this time was withdrawn to the stomach, adequately insufflated with air, and upon careful examination, mucosa of the antrum, body had diffuse gastritis and biopsies were done from this area. The, cardia and the fundus appeared normal. The scope was then withdrawn into the esophagus. The GE junction was located at 39 cm from the incisors. There was circumferential erythema consistent with LA grade B reflux esophagitis. Also there was a short segment of Archer's esophagus extending to 3 mm proximal to the GE junction which was biopsied. The rest of the esophagus appeared normal. There were no erosions or ulcerations seen and the patient tolerated the procedure well. IMPRESSION: 1. Diffuse gastritis. 2. Short segment Archer's esophagus and LA grade a reflux esophagitis. RECOMMENDATIONS: The findings of this examination were discussed with the patient as well as her family. She was advised to follow with the biopsy results. In the meantime she'll be started on Protonix 40 mg daily and diet will be advanced as tolerated. He for symptoms are better she can be discharged home tomorrow..
--- NOTE | 2021-04-25 14:42 | P.PN ---
Subjective Progress Note Date: 04/25/21 Principal diagnosis: Abdominal pain 45-year-old female who was a transfer from [facility] for abdominal pain with biliary ductal dilation noted. Patient was supposed to undergo an MRCP however due to her claustrophobia the patient refused. She states her abdominal pain has improved, she's had some nausea but relates that to her medication. Denies any vomiting. LFTs continue to be normal. He was discussion yesterday with patient and her daughter about possibly proceeding with an EGD if liver enzymes remain normal. Patient is agreeable to proceed with an EGD. Objective - Vital Signs Vital signs: Vital Signs Temp 98.5 F 04/25/21 07:46 Pulse 93 04/25/21 07:46 Resp 16 04/25/21 07:46 BP 155/74 04/25/21 07:46 Pulse Ox 96 04/25/21 07:46 Intake & Output 04/24/21 04/25/21 04/25/21 18:59 06:59 18:59 Intake Total 0 Balance 0 Weight 50.802 kg Intake: Oral 0 Other: Voiding Method Toilet # Voids 1 1 - Exam General appearance: The patient is alert, oriented, appears in no acute distress. HET: Head is normocephalic and atraumatic. Conjunctiva pink. Sclera anicteric. Neck: Supple without lymphadenopathy. Abdomen: Soft, mild epigastric tenderness, nondistended with bowel sounds. No guarding or rigidity. Extremities: Normal skin color and turgor. No pedal edema Skin: No rashes, no jaundice Neurological: No focal deficits. Alert and oriented 3. - Labs CBC & Chem 7: 04/25/21 05:53 04/25/21 05:53 Labs: Abnormal Lab Results - Last 24 Hours (Table) 04/25/21 04/25/21 Range/Units 05:53 05:53 WBC 10.41 H (4.50-10.00) X 10*3/uL MCHC 31.6 L (32.0-37.0) g/dL Plt Count 119 L (140-440) X 10*3/uL Immature Gran # 0.06 H (0.00-0.04) X 10*3/uL Eosinophils # 0.03 L (0.04-0.35) X 10*3/uL Anion Gap 12.30 H (4.00-12.00) mmol/L Calcium 8.6 L (8.7-10.3) mg/dL AST 46 H (13-35) U/L Assessment and Plan (1) Abdominal pain Narrative/Plan: 45-year-old female who is a transfer from [facility] with complaints of severe epigastric pain, who is status post cholecystectomy in the for cholelithiasis. Patient states pain started Thursday night and is sharp in the epigastric region. She has had associated nausea and vomiting, denies any coffee-ground emesis or hematemesis. She has no previous history of peptic ulcer disease, no previous upper endoscopies or NSAID use. She had a CT of the abdomen at [facility] that shows she is status post cholecystectomy with extrahepatic and intrahepatic biliary ductal dilation. Diffused increased common bile duct dilation measuring up to 9 mm, versus 05/15/2020 CT comparison when it measured up to 6 mm, recommend MRCP with and without contrast. Patient was transferred to undergo MRCP. LFTs are unremarkable. Labs are not consistent with CBD obstruction, MRCP was ordered but patient was unable to com plete the test due to claustrophobia. LFTs continue to be normal, possible EGD was discussed with patient and daughter and they are in agreement to proceed with an EGD today. Current Visit: Yes Status: Acute Code(s): R10.9 - UNSPECIFIED ABDOMINAL PAIN SNOMED Code(s): 45336297 (2) Dilated bile duct Current Visit: Yes Status: Acute Code(s): K83.8 - OTHER SPECIFIED DISEASES OF BILIARY TRACT SNOMED Code(s): 938636696 Plan: 1. Nothing by mouth 2. MRCP ordered, patient unable to complete test due to claustrophobia 3. Continue symptomatic and supportive care 4. Pain medications as needed 5. EGD this afternoon Thank you for this consultation, we will continue to follow Dr. Stefania Alvarado I agree with the dictator's note, documented as a scribe by Gretchen Mejia.
--- NOTE | 2021-04-25 21:10 | P.PN ---
Progress Note - Text Progress Note Date: 04/25/21 Chief Complaint: Upper abdominal pain History of presenting complaint: This is a very pleasant 75-year-old patient who follows with Dr. Sheba Palm. Chronic stable medical conditions include CLL that she follows with Dr. Lipscomb while, hypertension, osteoarthritis, COPD with Dr. Spangler. Patient on home oxygen 2 L at night. Patient is accompanied by her daughter at the bedside. Patient started to have progressively worsening epigastric pain for 3 days. Describes it being sharp. Going through the back. Patient initially transferred to [facility] where she did have a computed tomography scan. She is fine to have intermittent or extrahepatic biliary duct dilatation and common bile duct 9 mm. She was transferred here for further workup. Denies any fever and chills. Patient has a prior history of cholecystectomy. GI was consulted. Patient's had a decreased appetite for some time. No obvious weight loss. April 25: EGD: Severe gastritis and Archer's esophagus. Placed on PPI. Patient started on clear liquids. Abdominal pain better. Reclining in bed Review of systems: Was done for constitutional, cardiovascular, GI, pulmonary. relevant finding as above Active Medications Acetaminophen/Codeine Phosphate (Acetaminophen-Codeine 300-30mg Tab) 1 each PO Q8H PRN PRN Reason: Pain Albuterol/Ipratropium (Ipratropium-Albuterol 3 Ml Neb) 3 ml INHALATION RT-TID [facility] Last Admin: 04/25/21 19:32 Dose: 3 ml Documented by: Amlodipine Besylate (Amlodipine 10 Mg Tab) 10 mg PO DAILY [facility] Last Admin: 04/25/21 07:40 Dose: 10 mg Documented by: Budesonide/Formoterol Fumarate (Symbicort 80-4.5 Mcg Inhaler) 2 puff INHALATION RT-BID [facility] Last Admin: 04/25/21 19:32 Dose: 2 puff Documented by: Calcium Carbonate/Glycine (Calcium Carbonate Liquid 500 Mg/5 Ml Cup) 500 mg PO ACHS [facility] Hydromorphone HCl (Hydromorphone 0.5 Mg/0.5 Ml Syringe) 0.5 mg IVP Q3HR PRN PRN Reason: Moderate Pain Hydromorphone HCl (Hydromorphone 1 Mg/Ml 1 Ml Syringe) 1 mg IVP Q3HR PRN PRN Reason: Severe Pain Last Admin: 04/25/21 07:40 Dose: 1 mg Documented by: Hydromorphone HCl (Hydromorphone 1 Mg/Ml 1 Ml Syringe) 2 mg IVP Q3HR PRN PRN Reason: Severe Pain Lactated Ringer's (Lactated Ringers) 1,000 mls @ 125 mls/hr IV .Q8H [facility] Last Admin: 04/25/21 16:42 Dose: Not Given Documented by: Losartan Potassium (Losartan 50 Mg Tab) 100 mg PO DAILY [facility] Last Admin: 04/25/21 07:40 Dose: 100 mg Documented by: Metoclopramide HCl (Metoclopramide 5 Mg/Ml 2 Ml Vial) 10 mg IVP Q8HR PRN PRN Reason: Nausea Last Admin: 04/25/21 04:58 Dose: 10 mg Documented by: Mirtazapine (Mirtazapine 15 Mg Tab) 15 mg PO HS PRN PRN Reason: APPETITE Naloxone HCl (Naloxone 0.4 Mg/Ml 1 Ml Vial) 0.2 mg IV Q2M PRN PRN Reason: Opioid Reversal Pantoprazole Sodium (Pantoprazole 40 Mg Tablet) 40 mg PO BID [facility] Past medical history to include: COPD, hypertension, CLL, shoulder bursitis, actinic keratosis, right breast mass being worked up, anxiety Social history: Lives with her daughter. Smoked a pack a day for 40 years stopped in 2011. Alcohol occasionally. Family history: Myocardial infarction Physical examination: VITAL SIGNS: 98.3, 97, 18, 129/68, 93% room air GENERAL: BMI 18.1, reclining in bed, comfortable EYES: Pupils equal. Conjunctiva normal. HEENT: External appearance of nose and ears normal, oral cavity grossly normal. NECK: JVD not raised; masses not palpable. HEART: First and second heart sounds are normal; no edema. LUNGS: Respiratory rate normal; decreased breath sound. ABDOMEN: Soft, decreased epigastric tenderness, no guarding rigidity, liver spleen not palpable, no masses palpable. PSYCH: [Alert and oriented x3; mood and affect slightly anxious l. MUSCULAR skeletal: Evidence of OA INVESTIGATIONS, reviewed in the clinical context: EGD: Gastritis and Archer's esophagus [From [facility]] White count 13.1 hemoglobin 14.5 platelets 146 sodium 138 potassium 3.8 BUN 10 creatinine 0.86 AST 22 ALT 21 troponin I less than 0.03, bilirubin 0.5 UA unremarkable EKG tracing personally reviewed by me-normal sinus rhythm Computed tomography scan of the abdomen showing extra and intrahepatic biliary dilatation, CBD 9 mm. Cholecystectomy. Periportal lymphadenopathy and sple nomegaly Assessment and plan: -Acute epigastric pain from severe gastritis and Archer's esophagus -Acute on chronic gastritis PPI -Archer's esophagus On PPI -COPD in a ex-smoker Continue Symbicort, bronchodilator -Essential hypertension Continue amlodipine, losartan -Chronic lymphocytic leukemia Follow CBC. Patient does follow with Dr. Perkins /outpatient. -Actinitic keratosis -Chronic insomnia On Remeron Care was discussed with the patient. Advance diet as tolerated. PPI. Hopefully can be discharged home tomorrow. -
[2021-04-25] MEDS: PANTOPRAZOLE 40 MG TABLET PO SCH (21:22)
[2021-04-25] MEDS: CALCIUM CARBONATE LIQUID 500 MG/5 ML CUP PO SCH (21:30)
[2021-04-25] MEDS ORDERED: MAG HYDROX/AL HYDROX/SIMETH 30 ML CUP PO PRN (22:21)
[2021-04-26] MEDS: LACTATED RINGERS 1,000 ML IV SCH (01:15)
[2021-04-26] MEDS ORDERED: PANTOPRAZOLE 40 MG TABLET PO SCH (07:30)
[2021-04-26] MEDS: amLODIPine 10 MG TAB PO SCH (07:35)
[2021-04-26] MEDS: CALCIUM CARBONATE LIQUID 500 MG/5 ML CUP PO SCH (07:35)
[2021-04-26] MEDS: PANTOPRAZOLE 40 MG TABLET PO SCH (07:36)
[2021-04-26] MEDS: LOSARTAN 50 MG TAB PO SCH (07:36)
[2021-04-26 08:06] VITALS: BP 153/79; PULSE 102; RESP 16; TEMP 98.4
[2021-04-26] MEDS: IPRATROPIUM-ALBUTEROL 3 ML NEB INHALATION SCH ×2 (08:48→11:58)
[2021-04-26] MEDS: SYMBICORT 80-4.5 MCG INHALER INHALATION SCH ×2 (08:48→11:57)
--- NOTE | 2021-04-26 22:49 | P.DS ---
Providers Date of admission: 04/24/21 12:16 Expected date of discharge: 04/26/21 Attending physician: Giovani Winn Consults: 04/24/21 12:18 Consult Physician Urgent Consulting Provider: Mae Alvarado Consult Reason/Comments: Bile duct dilation Do you want consulting provider notified?: Yes Primary care physician: Anne Marie Palm [place] [facility] Course: Chief Complaint: Upper abdominal pain History of presenting complaint: This is a very pleasant 75-year-old patient who follows with Dr. Sheba Palm. Chronic stable medical conditions include CLL that she follows with Dr. Lipscomb while, hypertension, osteoarthritis, COPD with Dr. Spangler. Patient on home oxygen 2 L at night. Patient is accompanied by her daughter at the bedside. Patient started to have progressively worsening epigastric pain for 3 days. Describes it being sharp. Going through the back. Patient initially transferred to [facility] where she did have a computed tomography scan. She is fine to have intermittent or extrahepatic biliary duct dilatation and common bile duct 9 mm. She was transferred here for further workup. Denies any fever and chills. Patient has a prior history of cholecystectomy. GI was consulted. Patient's had a decreased appetite for some time. No obvious weight loss. April 25: EGD: Severe gastritis and Archer's esophagus. Placed on PPI. Patient started on clear liquids. Abdominal pain better. Reclining in bed April 26: GI symptoms greatly improved. Tolerating a soft bland diet. Care was discussed with the patient. Questions answered. Consultation: Dr. Stefania Alvarado from GI Past medical history to include: COPD, hypertension, CLL, shoulder bursitis, actinic keratosis, right breast mass being worked up, anxiety Social history: Lives with her daughter. Smoked a pack a day for 40 years stopped in 2011. Alcohol occasionally. Family history: Myocardial infarction Physical examination: VITAL SIGNS: 8.4, 102, 16, 153/79, 94% room air GENERAL: BMI 18.1, reclining in bed, comfortable EYES: Pupils equal. Conjunctiva normal. HEENT: External appearance of nose and ears normal, oral cavity grossly normal. NECK: JVD not raised; masses not palpable. HEART: First and second heart sounds are normal; no edema. LUNGS: Respiratory rate normal; decreased breath sound. ABDOMEN: Soft, improved epigastric tenderness, no guarding rigidity, liver spleen not palpable, no masses palpable. PSYCH: [Alert and oriented x3; mood and affect slightly anxious l. MUSCULAR skeletal: Evidence of OA INVESTIGATIONS, reviewed in the clinical context: EGD: Gastritis and Archer's esophagus [From [facility]] White count 13.1 hemoglobin 14.5 platelets 146 sodium 138 potassium 3.8 BUN 10 creatinine 0.86 AST 22 ALT 21 troponin I less than 0.03, bilirubin 0.5 UA unremarkable EKG tracing personally reviewed by me-normal sinus rhythm Computed tomography scan of the abdomen showing extra and intrahepatic biliary dilatation, CBD 9 mm. Cholecystectomy. Periportal lymphadenopathy and splenomegaly Assessment and plan: -Acute epigastric pain from severe gastritis and Archer's esophagus PPI. We'll follow up with GI as outpatient. -Acute on chronic gastritis PPI -Archer's esophagus On PPI -COPD in a ex-smoker Continue Symbicort, bronchodilator -Essential hypertension Continue amlodipine, losartan -Chronic lymphocytic leukemia Follow CBC. Patient does follow with Dr. Perkins /outpatient. -Actinitic keratosis -Chronic insomnia On Remeron Disposition: Home - Plan - Discharge Summary Discharge Rx Participant: Yes New Discharge Prescriptions: New Omeprazole [PriLOSEC] 20 mg PO AC-BID #60 cap Continue amLODIPine [Norvasc] 10 mg PO DAILY Tiotropium 18 Mcg/Puff [Spiriva] 1 puff INHALATION RT-DAILY Multivitamins, Thera [Multivitamin (formulary)] 1 tab PO DAILY Cholecalciferol [Vitamin D3 (25 Mcg = 1000 Iu)] 5,000 unit PO DAILY Mirtazapine [Remeron] 15 mg PO HS PRN PRN Reason: APPETITE Losartan Potassium 100 mg PO DAILY Acetaminophen-Codeine 300-30mg [Tylenol w/codeine #3] 1 tab PO Q8H PRN PRN Reason: Pain Budesonide/Formoterol Fumarate [Symbicort 80-4.5 Mcg Inhaler] 2 puff INHALATION RT-BID Albuterol Sulfate [Ventolin HFA] 2 puff INHALATION RT-Q4H PRN PRN Reason: Shortness Of Breath Discontinued Levofloxacin [Levaquin] 500 mg PO DAILY PRN PRN Reason: FEVER, SIGN OF INFECTION Ondansetron [Zofran] 4 mg PO Q6H PRN PRN Reason: Nausea Omeprazole 40 mg PO DAILY PRN PRN Reason: Heartburn Discharge Medication List Tiotropium 18 Mcg/Puff [Spiriva] 1 puff INHALATION RT-DAILY 10/15/18 [History] amLODIPine [Norvasc] 10 mg PO DAILY 10/15/18 [History] Cholecalciferol [Vitamin D3 (25 Mcg = 1000 Iu)] 5,000 unit PO DAILY 10/22/18 [History] Multivitamins, Thera [Multivitamin (formulary)] 1 tab PO DAILY 10/22/18 [History] Acetaminophen-Codeine 300-30mg [Tylenol w/codeine #3] 1 tab PO Q8H PRN 04/24/21 [History] Albuterol Sulfate [Ventolin HFA] 2 puff INHALATION RT-Q4H PRN 04/24/21 [History] Budesonide/Formoterol Fumarate [Symbicort 80-4.5 Mcg Inhaler] 2 puff INHALATION RT-BID 04/24/21 [History] Losartan Potassium 100 mg PO DAILY 04/24/21 [History] Mirtazapine [Remeron] 15 mg PO HS PRN 04/24/21 [History] Omeprazole [PriLOSEC] 20 mg PO AC-BID #60 cap 04/26/21 [Rx] Follow up Appointment(s)/Referral(s): Mae Alvarado MD [STAFF PHYSICIAN] - 4 Weeks (office closed at this time patient to call and make appointment ) Anne Marie Palm MD [Primary Care Provider] - 1-2 days (office will call with appoinment ) Patient Instructions/Handouts: Gastritis (DC)
== END 2021-04-26 13:22 ==
LOC: EC 11:42 → 4SSUR 12:16
PROVIDERS: ADMIT Hospitalist; ATTEND Hospitalist
DX: K29.00 Acute gastritis without bleeding (principal); K22.70 Barrett's esophagus without dysplasia; K29.50 Unspecified chronic gastritis without bleeding; K21.00 Gastro-esophageal reflux disease with esophagitis, without bleeding; K83.8 Other specified diseases of biliary tract; C91.10 Chronic lymphocytic leukemia of B-cell type not having achieved remission; I10 Essential (primary) hypertension; J44.9 Chronic obstructive pulmonary disease, unspecified; F43.10 Post-traumatic stress disorder, unspecified; N28.1 Cyst of kidney, acquired; Q82.8 Other specified congenital malformations of skin; N63.10 Unspecified lump in the right breast, unspecified quadrant; R16.1 Splenomegaly, not elsewhere classified; F40.240 Claustrophobia; M19.90 Unspecified osteoarthritis, unspecified site; F51.04 Psychophysiologic insomnia; Z79.899 Other long term (current) drug therapy; Z79.51 Long term (current) use of inhaled steroids; Z87.39 Personal history of other diseases of the musculoskeletal system and connective tissue; Z90.49 Acquired absence of other specified parts of digestive tract; Z90.710 Acquired absence of both cervix and uterus; Z87.891 Personal history of nicotine dependence; Z98.82 Breast implant status; Z82.49 Family history of ischemic heart disease and other diseases of the circulatory system
CPT/HCPCS: 96376; 96372; 96374; 96375 ×2; 99285; 94640 ×3; 88305; 80053; 85025; 85610; 88342; 71046; 43239; G0378 ×3; J2765; J2405; J2001; J1650; J1170 ×2; J2704

== ENCOUNTER 2023-10-06 09:26 | Inpatient (IN) | payer MEDICARE ==
--- NOTE | 2023-10-06 09:56 | ED ---
General Adult HPI - General Chief complaint: Shortness of Breath Stated complaint: ASHLEIGH,Lung Infection Time Seen by Provider: 10/06/23 09:37 Source: patient, RN notes reviewed Mode of arrival: ambulatory Limitations: no limitations - History of Present Illness Initial comments: 78-year-old female presents emergency Department chief complaint of cough baltazar estion shortness of breath. Patient states she's been dealing with infectious for most of the year. She states her bronchoscopy by Dr. Spangler and get results showing evidence of resistant pseudomonas infection. Patient states that she was advised that she would need to come to the hospital for admission for IV antibiotics, PICC line placement and further treatment. Patient states she does have a history of COPD. He has ongoing persistent cough that is noted to be productive at times. - Related Data Home Medications Medication Instructions Recorded Confirmed Tiotropium 18 Mcg/Puff [Spiriva] 1 puff INHALATION RT-DAILY 10/15/18 04/24/21 amLODIPine [Norvasc] 10 mg PO DAILY 10/15/18 04/24/21 Cholecalciferol [Vitamin D3 (25 5,000 unit PO DAILY 10/22/18 04/24/21 Mcg = 1000 Iu)] Multivitamins, Thera [Multivitamin 1 tab PO DAILY 10/22/18 04/24/21 (formulary)] Acetaminophen-Codeine 300-30mg 1 tab PO Q8H PRN 04/24/21 04/24/21 [Tylenol w/codeine #3] Albuterol Sulfate [Ventolin HFA] 2 puff INHALATION RT-Q4H PRN 04/24/21 04/24/21 Budesonide/Formoterol Fumarate 2 puff INHALATION RT-BID 04/24/21 04/24/21 [Symbicort 80-4.5 Mcg Inhaler] Losartan Potassium 100 mg PO DAILY 04/24/21 04/24/21 Mirtazapine [Remeron] 15 mg PO HS PRN 04/24/21 04/24/21 Previous Rx's Medication Instructions Recorded Omeprazole [PriLOSEC] 20 mg PO AC-BID #60 cap 04/26/21 Allergies Allergy/AdvReac Type Severity Reaction Status Date / Time No Known Allergies Allergy Verified 10/06/23 09:36 Review of Systems ROS Statement: Those systems with pertinent positive or pertinent negative responses have been documented in the HPI. ROS Other: All systems not noted in ROS Statement are negative. Past Medical History Past Medical History: Cancer, COPD, Hypertension, Skin Disorder Additional Past Medical History / Comment(s): Chronic lymphocytic leukemia. CYST RT KIDNEY. BURSITIS SHOULDERS. DISSEMINATED ACTINIC POROKERATOSIS SKIN COND, CHUCKY ARMS. BRUISES EASILY. RT BREAST MASS CURRENTLY. History of Any Multi-Drug Resistant Organisms: None Reported Past Surgical History: Appendectomy, Breast Surgery, Cholecystectomy, Hysterectomy Additional Past Surgical History / Comment(s): Breast implants, laparotomy Past Anesthesia/Blood Transfusion Reactions: Motion Sickness Past Psychological History: Anxiety, PTSD Smoking Status: Former smoker Past Alcohol Use History: Occasional Past Drug Use History: None Reported - Past Family History Father Family Medical History: Myocardial Infarction ([place]) Brother(s) Family Medical History: Myocardial Infarction ([place]) General Exam Limitations: no limitations General appearance: alert, in no apparent distress Head exam: Present: atraumatic, normocephalic, normal inspection Eye exam: Present: normal appearance, PERRL, EOMI. Absent: scleral icterus, conjunctival injection, periorbital swelling ENT exam: Present: normal exam, normal oropharynx, mucous membranes moist Neck exam: Present: normal inspection, full ROM. Absent: tenderness, meningismus, lymphadenopathy Respiratory exam: Present: rhonchi, decreased breath sounds. Absent: normal lung sounds bilaterally, respiratory distress, wheezes, rales, stridor Cardiovascular Exam: Present: regular rate, normal rhythm, normal heart sounds. Absent: systolic murmur, diastolic murmur, rubs, gallop, clicks GI/Abdominal exam: Present: soft, normal bowel sounds. Absent: distended, tenderness, guarding, rebound, rigid Course Vital Signs 10/06/23 10/06/23 09:29 10:34 Temperature 97.7 F Pulse Rate 86 82 Respiratory 20 16 Rate Blood Pressure 160/77 169/73 O2 Sat by Pulse 91 L 94 L Oximetry Medical Decision Making - Medical Decision Making Was pt. sent in by a medical professional or institution (, PA, [employer], urgent care, hospital, or senior care...) When possible be specific @ -Dr. Spangler Did you speak to anyone other than the patient for history (EMS, parent, family, police, friend...)? What history was obtained from this source @ -No Did you review nursing and triage notes (agree or disagree)? Why? @ -I reviewed and agree with nursing and triage notes Were old charts reviewed (outside hosp., previous admission, EMS record, old EKG, old radiological studies, urgent care reports/EKG's, senior care records)? Report findings @ -No old charts were reviewed Differential Diagnosis (chest pain, altered mental status, abdominal pain women, abdominal pain men, vaginal bleeding, weakness, fever, dyspnea, syncope, headache, dizziness, GI bleed, back pain, seizure, CVA, palpatations, mental health, musculoskeletal)? @ -nDifferential Dyspnea: Coronary syndrome, arrhythmia, tamponade, asthma, COPD, pulmonary embolism, pneumonia, pneumothorax, pulmonary effusion, anaphylaxis, diabetic ketoacidosis, flailed chest, pulmonary contusion, diaphragmatic rupture, anemia, neuromuscular, this is not meant to be an all-inclusive list. e EKG interpreted by me (3pts min.). @ -None X-rays interpreted by me (1pt min.). @ -X-ray shows COPD changes CT interpreted by me (1pt min.). @ -None done U/S interpreted by me (1pt. min.). @ -None done What testing was considered but not performed or refused? (CT, X-rays, U/S, labs)? Why? @ -None What meds were considered but not given or refused? Why? @ -None Did you discuss the management of the patient with other professionals (professionals i.e. , PA, [employer], lab, RT, psych nurse, social media marketing analyst, artificial marble worker, teacher, consumer loan officer, shelter case manager)? Give summary @ -[Dr. Winn for admission secondary to Pseudomonas lung infection requiring IV antibiotics and consult to Dr. Duran and Was smoking cessation discussed for >3mins.? @ -No Was critical care preformed (if so, how long)? @ -No Were there social determinants of health that impacted care today? How? (Homelessness, low income, unemployed, alcoholism, drug addiction, transportation, low edu. Level, literacy, decrease access to med. care, retirement, rehab)? @ -No Was there de-escalation of care discussed even if they declined (Discuss DNR or withdrawal of care, Hospice)? DNR status @ -No What co-morbidities impacted this encounter? (DM, HTN, Smoking, COPD, CAD, Cancer, CVA, ARF, Chemo, Hep., AIDS, mental health diagnosis, sleep apnea, morbid obesity)? @ -COPD Was patient admitted / discharged? Hospital course, mention meds given and route, prescriptions, significant lab abnormalities, going to OR and other pertinent info. @ -Admitted patient be admitted for IV antibiotics, PICC line placement and discharged home on IV antibiotics. Patient has Pseudomonas infection sent in by Dr. Spangler. Undiagnosed new problem with uncertain prognosis? @ -No Drug Therapy requiring intensive monitoring for toxicity (Heparin, Nitro, Insulin, Cardizem)? @ -No Were any procedures done? @ -No Diagnosis/symptom? @ -Pneumonia, COPD Acute, or Chronic, or Acute on Chronic? @ -Acute Uncomplicated (without systemic symptoms) or Complicated (systemic symptoms)? @ -Complicated Side effects of treatment? @ -No Exacerbation, Progression, or Severe Exacerbation? @ -No Poses a threat to life or bodily function? How? (Chest pain, [place], [place], pneumonia, PE, COPD, DKA, ARF, appy, cholecystitis, CVA, Diverticulitis, Homicidal, Suicidal, threat to staff... and all critical care pts) @ -[YeS pneumonia, COPD Disposition Clinical Impression: Pneumonia, Pseudomonas infection Disposition: ADMITTED IP TO THIS HOSP Condition: Fair Referrals: Anne Marie Palm MD [Primary Care Provider] - 1-2 days Time of Disposition: 10:45
--- NOTE | 2023-10-06 10:20 | XR ---
EXAMINATION TYPE: XR chest 2V DATE OF EXAM: 10/06/2023 COMPARISON: 04/24/2021, 04/08/2023 HISTORY: 78-year-old female difficulty breathing, shortness of breath TECHNIQUE: PA and lateral views FINDINGS: Heart normal size. Aorta and pulmonary vasculature within normal limits. Calcified bilateral breast i mplants redemonstrated. There are patchy interstitial densities right midlung, anterior lung base and posterior lung base on the lateral view. No pleural effusion. IMPRESSION: COPD with a few subtle interstitial infiltrates right midlung as well as the anterior and posterior l yoly base on the lateral view. Unable to exclude early pneumonia including the possibility of atypical /COVID pneumonia.
[2023-10-06 10:46] LABS: HCT 38.4 % (34.0-46.0); HGB 12.7 gm/dL (11.4-16.0); MCH 27.7 pg (25.0-35.0); MCV 83.7 fL (80.0-100.0); Mean Platelet Volume 7.3; Platelet Count 136 k/uL (150-450); RBC 4.58 m/uL (3.80-5.40); RDW 15.1 % (11.5-15.5); WBC 17.5 k/uL (3.8-10.6)
[2023-10-06] MEDS ORDERED: IPRATROPIUM-ALBUTEROL 3 ML NEB INHALATION PRN ×2 (10:46→13:10)
[2023-10-06] MEDS ORDERED: PNEUMONIA PROTOCOL UTILIZED 1 EACH MISC PO PRN (10:46)
[2023-10-06] MEDS ORDERED: PIPERACILLIN-TAZOBACTAM 3.375 GM in SODIUM CHLORIDE 0.9% 100 ML IVPB STA (10:48)
[2023-10-06 10:57] LABS: Partial Thromboplastin Time 24.3 sec (22.0-30.0)
[2023-10-06 11:02] LABS: ALT 17 U/L (4-34); AST 26 U/L (14-36); African American GFR (CKD) >90 (>60 ml/min/1.73 sqM); Albumin 3.7 g/dL (3.5-5.0); Alkaline Phosphatase 72 U/L (38-126); Anion Gap 12 mmol/L; Blood Urea Nitrogen 16 mg/dL (7-17); Calcium 8.5 mg/dL (8.4-10.2); Carbon Dioxide 22 mmol/L (22-30); Chloride 105 mmol/L (98-107); Glucose 104 mg/dL (74-99); Non-African American GFR(CKD) 83 (>60 ml/min/1.73 sqM); Potassium 4.4 mmol/L (3.5-5.1); Sodium 139 mmol/L (137-145); Total Bilirubin 0.8 mg/dL (0.2-1.3); Total Protein 6.3 g/dL (6.3-8.2)
[2023-10-06 13:04] LABS: Lymphocytes # (M) 9.98 k/uL (1.0-4.8); Monocytes # (M) 0.18 k/uL (0-1.0); Neutrophils # (M) 7.53 k/uL (1.3-7.7); Neutrophils % (M) 43 %; Nucleated Red Blood Cells 0 /100 WBC (0-0); Total Cells Counted 200
[2023-10-06] MEDS ORDERED: MIRTAZAPINE 15 MG TAB PO PRN (13:10)
[2023-10-06] MEDS ORDERED: PANTOPRAZOLE 40 MG TABLET PO PRN (13:10)
[2023-10-06] MEDS ORDERED: MELATONIN 3 MG TABLET PO PRN (13:17)
[2023-10-06] MEDS ORDERED: ALPRAZolam 0.25 MG TAB PO PRN (13:17)
[2023-10-06] MEDS ORDERED: NALOXONE 0.4 MG/ML 1 ML VIAL IV PRN (13:17)
[2023-10-06] MEDS ORDERED: ACETAMINOPHEN TAB 325 MG TAB PO PRN (13:17)
[2023-10-06] MEDS ORDERED: LACTULOSE 20 GM/30 ML CUP PO PRN (13:17)
[2023-10-06] MEDS ORDERED: ONDANSETRON 4 MG/2 ML VIAL IVP PRN (13:17)
[2023-10-06] MEDS ORDERED: CALCIUM CARBONATE 500 MG CHEWABLE PO PRN (13:17)
--- NOTE | 2023-10-06 14:48 | P.HPIM ---
History of Present Illness H&P Date: 10/06/23 Chief Complaint: Shortness of breath This is a very pleasant 78-year-old patient who follows with Dr. Sheba Palm. Chronic stable medical conditions include CLL that she follows with Dr. Perkins, hypertension, osteoarthritis, COPD with Dr. Spangler. Patient on home oxygen 2 L . Patient presents increasingly short of breath. Even with little activity. Has a cough and different colored sputum. Denies any fever and chills. Decreased appetite. Tired. Denies any edema. Patient underwent a bronchoscopy on to surround October [address] Spangler. Culture him back showing Pseudomonas resistant to multiple organisms. Patient is come in for placement of PICC line and home antibiotics. Patient also on anticoagulation for atrial fibrillation just diagnosed recently. Significant cough. No blood in the sputum. Review of systems: GEN.: Tired EYES: None HEENT: None NECK: None RESPIRATORY: As above CARDIOVASCULAR: None GASTROINTESTINAL: [As above GENITOURINARY: None MUSCULOSKELETAL: Joint pains LYMPHATICS: None HEMATOLOGICAL: None PSYCHIATRY: None NEUROLOGICAL: None Past medical history to include: COPD, hypertension, CLL, shoulder bursitis, actinic keratosis, , anxiety Social history: Lives with her daughter. Smoked a pack a day for 40 years stopped in 2011. Alcohol occasionally. Physical examination: VITAL SIGNS: 97.6, 86, 18, 145/69, 93% on 2 L GENERAL: BMI 17.4, sitting up. Tired EYES: Pupils equal. Conjunctiva normal. HEENT: External appearance of nose and ears normal, oral cavity grossly normal. NECK: JVD not raised; masses not palpable. HEART: First and second heart sounds are normal; no edema. LUNGS: Respiratory rate normal; decreased breath sound. Occasional crackle ABDOMEN: Soft, epigastric tenderness, no guarding rigidity, liver spleen not palpable, no masses palpable. PSYCH: [Alert and oriented x3; mood and affect slightly anxious l. MUSCULAR skeletal: Evidence of OA due to loss of subcutaneous fat and muscle mass. Prominent bones. NEUROLOGICAL: Cranial nerves grossly intact; no facial asymmetry, power and sensation grossly intact. LYMPHATICS: No lymph nodes palpable in the axilla and neck INVESTIGATIONS, reviewed in the clinical context: October 06: White count 7.5 hemoglobin 12.7 platelets 136 sodium 139 potassium 4.4 creatinine 0.7 Assessment and plan: -Pneumonia secondary to multiple drug resistant Pseudomonas. I feel outpatient treatment. Patient had bronchoscopy on the of this month. Per Dr. Spangler PTOT Admitted for IV Zosyn. PICC line. ID consulted -Persistent atrial fibrillation, rate controlled Hold eliquis until PICC line was placed -COPD in a ex-smoker Continue Symbicort, bronchodilator -Essential hypertension Coreg, losartan -Chronic lymphocytic leukemia Follow CBC. Patient does follow with Dr. Perkins /outpatient. -Actinitic keratosis -Chronic insomnia Remeron -Moderate protein calorie malnutrition from decreased oral intake Add ensure 3 times a day Discussed with patient. Consult pulmonary and ID. Past Medical History Past Medical History: Cancer, COPD, Hypertension, Skin Disorder Additional Past Medical History / Comment(s): Chronic lymphocytic leukemia. CYST RT KIDNEY. BURSITIS SHOULDERS. DISSEMINATED ACTINIC POROKERATOSIS SKIN COND, CHUCKY ARMS. BRUISES EASILY. RT BREAST MASS CURRENTLY. History of Any Multi-Drug Resistant Organisms: None Reported Past Surgical History: Appendectomy, Breast Surgery, Cholecystectomy, Hysterectomy Additional Past Surgical History / Comment(s): Breast implants, laparotomy Past Anesthesia/Blood Transfusion Reactions: Motion Sickness Past Psychological History: Anxiety, PTSD Smoking Status: Former smoker Past Alcohol Use History: Occasional Past Drug Use History: None Reported - Past Family History Father Family Medical History: Myocardial Infarction ([place]) Brother(s) Family Medical History: Myocardial Infarction ([place]) Medications and Allergies Home Medications Medication Instructions Recorded Confirmed Type Multivitamins, Thera [Multivitamin 1 tab PO DAILY 10/22/18 10/06/23 History (formulary)] Albuterol Sulfate [Ventolin HFA] 2 puff INHALATION RT-Q4H PRN 04/24/21 10/06/23 History Apixaban [Eliquis] 2.5 mg PO BID 10/06/23 10/06/23 History Cholecalciferol [Vitamin D3 (25 50 mcg PO DAILY 10/06/23 10/06/23 History Mcg = 1000 Iu)] Fluticasone/Umeclidin/Vilanter 1 puff INHALATION RT-DAILY 10/06/23 10/06/23 History [Trelegy Ellipta 100-62.5-25] Ipratropium-Albuterol Nebulize 3 ml INHALATION RT-QID PRN 10/06/23 10/06/23 History [Duoneb 0.5 mg-3 mg/3 ml Soln] Losartan [Cozaar] 50 mg PO DAILY 10/06/23 10/06/23 History Mirtazapine 30 mg PO HS PRN 10/06/23 10/06/23 History Omeprazole [PriLOSEC] 20 mg PO AC-BID PRN 10/06/23 10/06/23 History carvediloL [Coreg] 25 mg PO BID 10/06/23 10/06/23 History predniSONE 20 mg PO DAILY 10/06/23 10/06/23 History Allergies Allergy/AdvReac Type Severity Reaction Status Date / Time No Known Allergies Allergy Verified 10/06/23 11:35 Physical Exam Vitals: Vital Signs Temp Pulse Resp BP Pulse Ox 10/06/23 12:44 90 18 145/69 93 L 10/06/23 11:46 97.6 F 86 18 187/98 85 L 10/06/23 10:34 82 16 169/73 94 L 10/06/23 09:29 97.7 F 86 20 160/77 91 L Intake and Output 10/05/23 10/06/23 10/06/23 22:59 06:59 14:59 Other: Weight 48.988 kg Results CBC & Chem 7: 10/06/23 10:20 10/06/23 10:20 Labs: Abnormal Lab Results - Last 24 Hours (Table) 10/06/23 10/06/23 Range/Units 10:20 10:20 WBC 17.5 H (3.8-10.6) k/uL Plt Count 136 L (150-450) k/uL Lymphocytes # (Manual) 9.98 H (1.0-4.8) k/uL Glucose 104 H (74-99) mg/dL
[2023-10-06] MEDS: carvediloL 12.5 MG TAB PO SCH (18:44)
--- NOTE | 2023-10-06 19:38 | P.CONS ---
History of Present Illness - Reason for Consult Consult date: 10/06/23 - History of Present Illness Patient is a 78-year-old female with a past medical history ignificant for hypertension COPD chronic lymphocytic leukemia patient apparently has issues with increasing shortness of breath and cough which has been moderate intensity and bring up some sputum patient mention she did have a bronchoscopy done by and the cultures came back positive with drug-resistant Pseudomonas for the patient advised to go to the hospital for IV antibiotic therapy, I am unable to find those results in the [facility] system patient denies having any fever or any chills ,has been complaining of mostly shortness of breath, patient denies having any chest pain patient did have a cough which is moderate intensity and has been become some yellowish to green sputum no hemoptysis no nausea no vomiting no abdominal pain or diarrhea on presentation to the hospital patient was afebrile patient was not tachycardic patient was mildly hypoxic requiring supplemental oxygen patient did have white blood cell 8.5 with a left shift creatinine 0.70 liver enzymes are normal patient did have a chest x-ray COPD with few subtle interstitial infiltrate right midlung as well as the anterior and posterior lung base concerning for pneumonia, patient was given a dose of Zosyn infectious disease was consulted for further management of antibiotic therapy Past Medical History Past Medical History: Cancer, COPD, Hypertension, Skin Disorder Additional Past Medical History / Comment(s): Chronic lymphocytic leukemia. CYST RT KIDNEY. BURSITIS SHOULDERS. DISSEMINATED ACTINIC POROKERATOSIS SKIN COND, CHUCKY ARMS. BRUISES EASILY. RT BREAST MASS CURRENTLY. History of Any Multi-Drug Resistant Organisms: None Reported Past Surgical History: Appendectomy, Breast Surgery, Cholecystectomy, Hys terectomy Additional Past Surgical History / Comment(s): Breast implants, laparotomy Past Anesthesia/Blood Transfusion Reactions: Motion Sickness Past Psychological History: Anxiety, PTSD Smoking Status: Former smoker Past Alcohol Use History: Occasional Past Drug Use History: None Reported - Past Family History Father Family Medical History: Myocardial Infarction ([place]) Brother(s) Family Medical History: Myocardial Infarction ([place]) Medications and Allergies Home Medications Medication Instructions Recorded Confirmed Type Multivitamins, Thera [Multivitamin 1 tab PO DAILY 10/22/18 10/06/23 History (formulary)] Albuterol Sulfate [Ventolin HFA] 2 puff INHALATION RT-Q4H PRN 04/24/21 10/06/23 History Apixaban [Eliquis] 2.5 mg PO BID 10/06/23 10/06/23 History Cholecalciferol [Vitamin D3 (25 50 mcg PO DAILY 10/06/23 10/06/23 History Mcg = 1000 Iu)] Fluticasone/Umeclidin/Vilanter 1 puff INHALATION RT-DAILY 10/06/23 10/06/23 History [Trelegy Ellipta 100-62.5-25] Ipratropium-Albuterol Nebulize 3 ml INHALATION RT-QID PRN 10/06/23 10/06/23 History [Duoneb 0.5 mg-3 mg/3 ml Soln] Losartan [Cozaar] 50 mg PO DAILY 10/06/23 10/06/23 History Mirtazapine 30 mg PO HS PRN 10/06/23 10/06/23 History Omeprazole [PriLOSEC] 20 mg PO AC-BID PRN 10/06/23 10/06/23 History carvediloL [Coreg] 25 mg PO BID 10/06/23 10/06/23 History predniSONE 20 mg PO DAILY 10/06/23 10/06/23 History guaiFENesin [Mucinex] 600 mg PO QID #90 tab 10/08/23 Rx Allergies Allergy/AdvReac Type Severity Reaction Status Date / Time No Known Allergies Allergy Verified 10/06/23 11:35 Physical Exam Vitals: Vital Signs Temp Pulse Resp BP Pulse Ox 10/06/23 12:44 90 18 145/69 93 L 10/06/23 11:46 97.6 F 86 18 187/98 85 L 10/06/23 10:34 82 16 169/73 94 L 10/06/23 09:29 97.7 F 86 20 160/77 91 L Intake and Output 10/05/23 10/06/23 10/06/23 22:59 06:59 14:59 Other: Weight 48.988 kg Results CBC & Chem 7: 10/06/23 10:20 10/06/23 10:20 Labs: Abnormal Lab Results - Last 24 Hours (Table) 10/06/23 10/06/23 Range/Units 10:20 10:20 WBC 17.5 H (3.8-10.6) k/uL Plt Count 136 L (150-450) k/uL Lymphocytes # (Manual) 9.98 H (1.0-4.8) k/uL Glucose 104 H (74-99) mg/dL Assessment and Plan Plan: 1patient presented to the hospital with increasing shortness of breath and a cough patient did have hypoxemia elevated white count infiltrate on the chest x- ray suspicious for pneumonia and apparently recently did have a bronchoscopy with the BAL culture positive for drug-resistant Pseudomonas, will try to obtain those culture report 2-sputum culture has been collected we will check a CRP and a procalcitonin 3-start the patient on Zosyn 3.375 g every 8 hours while waiting for the culture to finalize We will follow on clinical condition and cultures to further adjust medication if needed Thank you for this consultation we will follow the patient along with you Dictation was produced using [employer] dictation software. please excuse any grammatical, word or spelling errors. Time with Patient: Greater than 30
--- NOTE | 2023-10-06 19:56 | P.CNPUL ---
History of Present Illness Consult date: 10/06/23 Reason for consult: COPD, pneumonia History of present illness: 78-year-old female patient with advanced oxygen-dependent COPD and chronic check a bronchomalacia and chronic immunosuppression related to CLL. The patient currently has active pseudomonal colonization/infection. The patient underwent a bronchoscopy at [facility] and the patient was found to have a quinolone resistant pseudomonas aeruginosa. Noted the patient was being treated with ciprofloxacin an outpatient basis without any major improvement. For that reason, she was hospitalized for IV antibiotics. The patient had a chest x-ray showed a right midlung infiltrate. She has diminished appetite. She is complaining of generalized weakness and fatigue. She is currently on oxygen 2 L/m nasal cannula, and she has a white cell count of 17.5 with a hemoglobin of 12.7 and the rest of the electrolytes are all stable and within normal limits. Coagulation profile is also within normal limits. The patient was started on IV Zosyn. PICC line will be also ordered for outpatient by treatment. The patient continues to have some yellowish sputum along with ongoing cough and congestion. Review of Systems Constitutional: Reports fatigue, Reports poor appetite, Reports weight loss Eyes: denies as per HPI, denies blurred vision, denies bulging eye, denies decreased vision, denies diplopia, denies discharge, denies dry eye, denies irritation, denies itching, denies pain, denies photophobia, denies loss of peripheral vision, denies loss of vision, denies tunnel vision/blind spots Ears: deny: decreased hearing, ear discharge, earache, tinnitus Ears, nose, mouth and throat: Reports as per HPI Breasts: absent: as per HPI, change in shape, gynecomastia, masses, nipple discharge, pain, skin changes, swelling Cardiovascular: Reports decreased exercise tolerance, Reports dyspnea on exertion Respiratory: Reports cough, Reports dyspnea, Reports excessive sputum, Reports home oxygen, Reports respiratory infections, Reports wheezing Gastrointestinal: Reports as per HPI Genitourinary: Reports as per HPI Menstruation: Reports as per HPI Musculoskeletal: Reports as per HPI Musculoskeletal: absent: ankle pain, ankle stiffness, ankle swelling, as per HPI, elbow pain, elbow stiffness, elbow swelling, foot pain, foot stiffness, foot swelling, hand pain, hand stiffness, hand swelling, hip pain, hip stiffness, hip swelling, knee pain, knee stiffness, knee swelling, shoulder pain, shoulder stiffness, shoulder swelling, wrist pain, wrist stiffness, wrist swelling Integumentary: Reports as per HPI Neurological: Reports as per HPI Psychiatric: Reports as per HPI Endocrine: Reports as per HPI, Reports fatigue Past Medical History Past Medical History: Cancer, COPD, Hypertension, Skin Disorder Additional Past Medical History / Comment(s): Chronic lymphocytic leukemia. CYST RT KIDNEY. BURSITIS SHOULDERS. DISSEMINATED ACTINIC POROKERATOSIS SKIN COND, CHUCKY ARMS. BRUISES EASILY. RT BREAST MASS CURRENTLY. History of Any Multi-Drug Resistant Organisms: None Reported Past Surgical History: Appendectomy, Breast Surgery, Cholecystectomy, Hysterectomy Additional Past Surgical History / Comment(s): Breast implants, laparotomy Past Anesthesia/Blood Transfusion Reactions: Motion Sickness Past Psychological History: Anxiety, PTSD Smoking Status: Former smoker Past Alcohol Use History: Occasional Past Drug Use History: None Reported - Past Family History Father Family Medical History: Myocardial Infarction ([place]) Brother(s) Family Medical History: Myocardial Infarction ([place]) Medications and Allergies Home Medications Medication Instructions Recorded Confirmed Type Multivitamins, Thera [Multivitamin 1 tab PO DAILY 10/22/18 10/06/23 History (formulary)] Albuterol Sulfate [Ventolin HFA] 2 puff INHALATION RT-Q4H PRN 04/24/21 10/06/23 History Apixaban [Eliquis] 2.5 mg PO BID 10/06/23 10/06/23 History Cholecalciferol [Vitamin D3 (25 50 mcg PO DAILY 10/06/23 10/06/23 History Mcg = 1000 Iu)] Fluticasone/Umeclidin/Vilanter 1 puff INHALATION RT-DAILY 10/06/23 10/06/23 History [Trelegy Ellipta 100-62.5-25] Ipratropium-Albuterol Nebulize 3 ml INHALATION RT-QID PRN 10/06/23 10/06/23 History [Duoneb 0.5 mg-3 mg/3 ml Soln] Losartan [Cozaar] 50 mg PO DAILY 10/06/23 10/06/23 History Mirtazapine 30 mg PO HS PRN 10/06/23 10/06/23 History Omeprazole [PriLOSEC] 20 mg PO AC-BID PRN 10/06/23 10/06/23 History carvediloL [Coreg] 25 mg PO BID 10/06/23 10/06/23 History predniSONE 20 mg PO DAILY 10/06/23 10/06/23 History Allergies Allergy/AdvReac Type Severity Reaction Status Date / Time No Known Allergies Allergy Verified 10/06/23 11:35 Physical Exam Vitals: Vital Signs Temp Pulse Resp BP Pulse Ox 10/06/23 18:46 98 14 122/86 97 10/06/23 15:29 95 10/06/23 14:48 99 14 121/89 93 L 10/06/23 12:44 90 18 145/69 93 L 10/06/23 11:46 97.6 F 86 18 187/98 85 L 10/06/23 10:34 82 16 169/73 94 L 10/06/23 09:29 97.7 F 86 20 160/77 91 L Intake and Output 10/06/23 10/06/23 10/06/23 06:59 14:59 22:59 Other: Weight 48.988 kg VITAL SIGNS: 97.6, 86, 18, 145/69, 93% on 2 L GENERAL: BMI 17.4, sitting up. Tired EYES: Pupils equal. Conjunctiva normal. HEENT: External appearance of nose and ears normal, oral cavity grossly normal. NECK: JVD not raised; masses not palpable. HEART: First and second heart sounds are normal; no edema. LUNGS: Respiratory rate normal; decreased breath sound. Occasional crackle , diminished breath sound bilaterally ABDOMEN: Soft, epigastric tenderness, no guarding rigidity, liver spleen not palpable, no masses palpable. PSYCH: [Alert and oriented x3; mood and affect slightly anxious l. MUSCULAR skeletal: Evidence of OA due to loss of subcutaneous fat and muscle mass. Prominent bones. NEUROLOGICAL: Cranial nerves grossly intact; no facial asymmetry, power and sensation grossly intact. LYMPHATICS: No lymph nodes palpable in the axilla and neck Results - Laboratory Findings CBC and BMP: 10/06/23 10:20 10/06/23 10:20 PT/INR, D-dimer PT 11.0 sec (10.0-12.5) 10/06/23 10:20 INR 1.0 (<1.2) 10/06/23 10:20 Abnormal lab findings: Abnormal Labs 12/26/23 12/26/23 10:20 10:20 WBC 17.5 H Plt Count 136 L Lymphocytes # (Manual) 9.98 H Glucose 104 H - Diagnostic Findings Chest x-ray: image reviewed Assessment and Plan Plan: Right lung pneumonia likely secondary to pseudomonas aeruginosa, quinolone resistant and the patient has failed outpatient antibiotics with ciprofloxacin. Acute COPD exacerbation secondary to above Chronic COPD with chronic hypoxic respiratory failure, maintain on Trelegy Ellipta on outpatient basis Severe tracheal bronchomalacia CLL with chronic immunosuppression and chronic leukocytosis with thrombocytopenia, no anemia this point in time Shortness of breath secondary to above Hypertension History of Archer's esophagus with severe gastritis Chronic hypoxic respiratory failure maintain on oxygen 2 L/m nasal cannula History of actinic keratosis Plan Agree on IV Zosyn PICC line insertion Arrange home antibiotics, likely IV cefepime to be continued on outpatient basis ID consultation May need another bronchoscopy and the patient has severe tracheal bronchomalacia in addition
[2023-10-06] MEDS ORDERED: APIXABAN 2.5 MG TABLET PO SCH (21:00)
[2023-10-06] MEDS: PIPERACILLIN-TAZOBACTAM 3.375 GM in SODIUM CHLORIDE 0.9% 100 ML IVPB SCH (21:38)
[2023-10-07] MEDS: PIPERACILLIN-TAZOBACTAM 3.375 GM in SODIUM CHLORIDE 0.9% 100 ML IVPB SCH ×2 (03:40→12:09)
[2023-10-07] MEDS: carvediloL 12.5 MG TAB PO SCH ×2 (06:39→17:14)
[2023-10-07] MEDS: LOSARTAN 50 MG TAB PO SCH (07:44)
[2023-10-07] MEDS: predniSONE 20 MG TAB PO SCH (07:44)
[2023-10-07] MEDS: CHOLECALCIFEROL 25 MCG (1000 IU) TABLET PO SCH (07:44)
[2023-10-07] MEDS: MULTIVITAMINS, THERA 1 EACH TAB PO SCH (07:44)
[2023-10-07] MEDS ORDERED: NON FORMULARY DRUG (Fluticasone/Umeclidin/Vilanter [Trelegy Ellipta 100-62.5-25] 1 EACH Bl INHALATION SCH (08:00)
--- NOTE | 2023-10-07 08:28 | XR ---
EXAMINATION TYPE: XR chest 2V DATE OF EXAM: 10/07/2023 6:43 AM CLINICAL INDICATION:Female, 78 years old with history of pneumonia; MERGED WITH [facility] COMPARISON: Chest radiograph from one day prior. TECHNIQUE: XR chest 2V Frontal and lateral views of the chest. FINDINGS: Lungs/Pleura: Stable right midlung streaky atelectasis. Consultations on the breast implants [employer] project over the lower lungs limit evaluation. There is no evidence of pleural effusion, focal co nsolidation, or pneumothorax. Pulmonary vascularity: Unremarkable. Heart/mediastinum: Cardiomediastinal silhouette is unremarkable. Musculoskeletal: No acute osseous pathology. IMPRESSION: 1. Right midlung opacities felt to represent pneumonia versus scarring. Not significantly changed fro m prior. 2. COPD changes.
[2023-10-07] MEDS: SYMBICORT 80-4.5 MCG INHALER INHALATION SCH ×2 (09:23→22:01)
[2023-10-07] MEDS: IPRATROPIUM 0.5 MG/2.5 ML NEBU INHALATION SCH ×2 (09:24→12:41)
[2023-10-07] MEDS: IPRATROPIUM-ALBUTEROL 3 ML NEB INHALATION SCH ×3 (12:34→22:01)
--- NOTE | 2023-10-07 13:58 | P.PN ---
Subjective Progress Note Date: 10/07/23 78-year-old female patient with advanced oxygen-dependent COPD and chronic ch jakob a bronchomalacia and chronic immunosuppression related to CLL. The patient currently has active pseudomonal colonization/infection. The patient underwent a bronchoscopy at [facility] and the patient was found to have a quinolone resistant pseudomonas aeruginosa. Noted the patient was being treated with ciprofloxacin an outpatient basis without any major improvement. F or that reason, she was hospitalized for IV antibiotics. The patient had a chest x-ray showed a right midlung infiltrate. She has diminished appetite. She is complaining of generalized weakness and fatigue. She is currently on oxygen 2 L/m nasal cannula, and she has a white cell count of 17.5 with a hemoglobin of 12.7 and the rest of the electrolytes are all stable and within normal limits. Coagulation profile is also within normal limits. The patient was started on IV Zosyn. PICC line will be also ordered for outpatient by treatment. The patient continues to have some yellowish sputum along with ongoing cough and congestion. On today's evaluation of 10/07/2023, the patient is feeling improved compared to yesterday. No new complaints. She is having some liquidy diarrhea, minimal, loose, and this may be related to Zosyn. I attempted assess this patient home with a PICC line and IV antibiotics. Discussed the case with infectious disease and was switched the patient IV cefepime. The PICC line is to be inserted today. No new complaints otherwise for now. Objective - Vital Signs Vital signs: Vital Signs Temp 98.0 F 10/07/23 08:00 Pulse 86 10/07/23 09:38 Resp 18 10/07/23 08:00 BP 118/68 10/07/23 08:00 Pulse Ox 94 L 10/07/23 09:27 FiO2 Intake & Output 10/06/23 10/07/23 10/07/23 18:59 06:59 18:59 Weight 48.988 kg 48.988 kg Other: Voiding Method Toilet # Voids 3 - Exam VITAL SIGNS: 97.6, 86, 18, 145/69, 93% on 2 L GENERAL: BMI 17.4, sitting up. Tired EYES: Pupils equal. Conjunctiva normal. HEENT: External appearance of nose and ears normal, oral cavity grossly normal. NECK: JVD not raised; masses not palpable. HEART: First and second heart sounds are normal; no edema. LUNGS: Respiratory rate normal; decreased breath sound. Occasional crackle , diminished breath sound bilaterally ABDOMEN: Soft, epigastric tenderness, no guarding rigidity, liver spleen not palpable, no masses palpable. PSYCH: [Alert and oriented x3; mood and affect slightly anxious l. MUSCULAR skeletal: Evidence of OA due to loss of subcutaneous fat and muscle mass. Prominent bones. NEUROLOGICAL: Cranial nerves grossly intact; no facial asymmetry, power and sensation grossly intact. LYMPHATICS: No lymph nodes palpable in the axilla and neck - Labs CBC & Chem 7: 10/06/23 10:20 10/06/23 10:20 Labs: Abnormal Lab Results - Last 24 Hours (Table) 10/06/23 Range/Units 10:20 Lymphocytes # (Manual) 9.98 H (1.0-4.8) k/uL Microbiology - Last 24 Hours (Table) 10/06/23 11:49 Gram Stain - Preliminary Sputum Sputum Culture - Preliminary Gram Neg Bacilli Assessment and Plan Plan: Right lung pneumonia likely secondary to pseudomonas aeruginosa, quinolone resistant and the patient has failed outpatient antibiotics with ciprofloxacin. Acute COPD exacerbation secondary to above Chronic COPD with chronic hypoxic respiratory failure, maintain on Trelegy Ellipta on outpatient basis Severe tracheal bronchomalacia CLL with chronic immunosuppression and chronic leukocytosis with thrombocytopenia, no anemia this point in time Shortness of breath secondary to above Hypertension History of Archer's esophagus with severe gastritis Chronic hypoxic respiratory failure maintain on oxygen 2 L/m nasal cannula History of actinic keratosis Plan Switch the patient to IV cefepime PICC line insertion to be done today Repeat chest x-ray in the morning Arrange home antibiotics, likely IV cefepime to be continued on outpatient basis ID consultation Watch for any signs of diarrhea We'll continue to follow
[2023-10-07] MEDS: CEFEPIME 2 GM in SODIUM CHLORIDE 0.9% 100 ML IVPB SCH ×2 (14:28→21:47)
[2023-10-07 15:09] VITALS: BMI 17.4
--- NOTE | 2023-10-07 16:58 | P.OP ---
Date of Procedure: 10/07/23 Description of Procedure: Preoperative Diagnosis: Need for long-term IV antibiotic access. Postoperative Diagnosis: Same. Procedure(s) Performed: Ultrasound-guided cannulation left basilic vein. Insertion of peripherally inserted central catheter under fluoroscopic guidance. Anesthesia: local 1% lidocaine duke Surgeon: Rosemary Estimated Blood Loss (ml): 5 IV fluids (ml): 0 Urine output (ml): 0 Pathology: none sent Condition: stable Disposition: no change Indications for Procedure: Patient requires long-term IV antibiotics as an outpatient patient is offered a PICC line to allow for intravenous administration of antibiotics. Description of Procedure: Patient was brought to the special procedure suite. The left upper extremity sterilely prepped and draped in usual manner. Ultrasound was utilized to identify the basilic vein which was normally compressible free of visible thrombus. Permenant image was stored. 1% Xylocaine was utilized for local anesthesia tissues overlying the vein. Through this anesthetized area and with the aid of ultrasound a micropuncture needle was utilized to cannulate the vein. Once cannulated, Softip guidewire was advanced into the vein. The needle was withdrawn and a micropuncture sheath and dilator advanced over the guidewire. The guidewire was withdrawn and exchanged for the PICC guidewire and measured 40 cm to the cavoatrial junction. The catheter was cut to size and advanced into the cavoatrial junction without resistance. The sheath was peeled away. Blood was easily withdrawn through the catheter and the catheter was then flushed with heparinized saline solution and secured to the skin. Patient tolerated procedure well and was returned to their room in satisfactory and stable condition.
--- NOTE | 2023-10-07 20:16 | P.PN ---
Progress Note - Text Progress Note Date: 10/07/23 Chief Complaint: Shortness of breath This is a very pleasant 78-year-old patient who follows with Dr. Sheba Palm. Chronic stable medical conditions include CLL that she follows with Dr. Perkins, hypertension, osteoarthritis, COPD with Dr. Spangler. Patient on home oxygen 2 L . Patient presents increasingly short of breath. Even with little activity. Has a cough and different colored sputum. Denies any fever and chills. Decreased appetite. Tired. Denies any edema. Patient underwent a bronchoscopy on to October [address] Spangler. Culture him back showing Pseudomonas resistant to multiple organisms. Patient is come in for placement of PICC line and home antibiotics. Patient also on anticoagulation for atrial fibrillation just diagnosed recently. Significant cough. No blood in the sputum. 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 Underwent a bronchoscopy at [facility] was found to have an annual resistant Pseudomonas aeruginosa. He did receive ciprofloxacin as outpatient. She has not complaining of 3-4 BMs a day. Started yesterday. C. difficile be ordered. Patient on IV cefepime. His appetite. Bringing up significant sputum. PICC line placed by Dr. Riley Active Medications Acetaminophen (Acetaminophen Tab 325 Mg Tab) 650 mg PO Q6HR PRN PRN Reason: Mild Pain or Fever > 100.5 Albuterol/Ipratropium (Ipratropium-Albuterol 3 Ml Neb) 3 ml INHALATION RT-Q4H PRN PRN Reason: shortness of breath Last Admin: 10/07/23 09:23 Dose: 3 ml Albuterol/Ipratropium (Ipratropium-Albuterol 3 Ml Neb) 3 ml INHALATION RT-QID [facility] Last Admin: 10/07/23 16:26 Dose: 3 ml Alprazolam (Alprazolam 0.25 Mg Tab) 0.25 mg PO Q6HR PRN PRN Reason: Anxiety Budesonide/Formoterol Fumarate (Symbicort 80-4.5 Mcg Inhaler) 2 puff INHALATION RT-BID [facility] Last Admin: 10/07/23 09:23 Dose: 2 puff Calcium Carbonate/Glycine (Calcium Carbonate 500 Mg Chewable) 1,000 mg PO Q4HR PRN PRN Reason: Dyspepsia Carvedilol (Carvedilol 12.5 Mg Tab) 25 mg PO BID-W/MEALS [facility] Last Admin: 10/07/23 17:14 Dose: 25 mg Cholecalciferol (Cholecalciferol 25 Mcg (1000 Iu) Tablet) 50 mcg PO DAILY [facility] Last Admin: 10/07/23 07:44 Dose: 50 mcg Cefepime HCl 2 gm/ Sodium (Chloride) 100 mls @ 25 mls/hr IVPB Q12HR [facility]; Protocol Last Admin: 10/07/23 14:28 Dose: 25 mls/hr Lactulose (Lactulose 20 Gm/30 Ml Cup) 20 gm PO DAILY PRN PRN Reason: Constipation Losartan Potassium (Losartan 50 Mg Tab) 50 mg PO DAILY [facility] Last Admin: 10/07/23 07:44 Dose: 50 mg Melatonin (Melatonin 3 Mg Tablet) 3 mg PO HS PRN PRN Reason: Insomnia Mirtazapine (Mirtazapine 15 Mg Tab) 30 mg PO HS PRN PRN Reason: SLEEP Miscellaneous Information (Pneumonia Protocol Utilized 1 Each Misc) 1 each PO ONCE PRN PRN Reason: Per Protocol Multivitamins (Multivitamins, Thera 1 Each Tab) 1 each PO DAILY [facility] Last Admin: 10/07/23 07:44 Dose: 1 each Naloxone HCl (Naloxone 0.4 Mg/Ml 1 Ml Vial) 0.2 mg IV Q2M PRN PRN Reason: Opioid Reversal Ondansetron HCl (Ondansetron 4 Mg/2 Ml Vial) 4 mg IVP Q8HR PRN PRN Reason: Nausea And Vomiting Pantoprazole Sodium (Pantoprazole 40 Mg Tablet) 40 mg PO AC-BID PRN PRN Reason: acid reflux Prednisone (Prednisone 20 Mg Tab) 20 mg PO DAILY [facility] Last Admin: 10/07/23 07:44 Dose: 20 mg Past medical history to include: COPD, hypertension, CLL, shoulder bursitis, actinic keratosis, , anxiety Social history: Lives with her daughter. Smoked a pack a day for 40 years stopped in 2011. Alcohol occasionally. Physical examination: VITAL SIGNS: Recent 0.6, 95, 18, 1 6579, 94% on 2 L GENERAL: In bed-sitting up. Tired EYES: Pupils equal. Conjunctiva normal. HEENT: External appearance of nose and ears normal, oral cavity grossly normal. NECK: JVD not raised; masses not palpable. HEART: First and second heart sounds are normal; no edema. LUNGS: Respiratory rate normal; decreased breath sound. Occasional crackle ABDOMEN: Soft, epigastric tenderness, no guarding rigidity, liver spleen not palpable, no masses palpable. PSYCH: [Alert and oriented x3; mood and affect slightly anxious l. MUSCULAR skeletal: Evidence of OA due to loss of subcutaneous fat and muscle mass. Prominent bones. INVESTIGATIONS, reviewed in the clinical context: October 06: White count 7.5 hemoglobin 12.7 platelets 136 sodium 139 potassium 4.4 creatinine 0.7 Chest x-ray film personally reviewed by me-infiltrates Telemetry: Atrial fibrillation Assessment and plan: -Pneumonia secondary to multiple drug resistant Pseudomonas. I feel outpatient treatment. Patient had bronchoscopy on the of this month. Per Dr. Spangler PTOT V cefepime. PICC line. ID consulted -Persistent atrial fibrillation, rate controlled Hold eliquis until PICC line was placed -COPD in a ex-smoker Continue Symbicort, bronchodilator -Essential hypertension Coreg, losartan -Chronic lymphocytic leukemia Follow CBC. Patient does follow with Dr. Perkins /outpatient. -Actinitic keratosis -Chronic insomnia Remeron -Moderate protein calorie malnutrition from decreased oral intake ensure 3 times a day Mucinex and flutter valve. PICC line placed Past Medical History Past Medical History: Cancer, COPD, Hypertension, Skin Disorder Additional Past Medical History / Comment(s): Chronic lymphocytic leukemia. CYST RT KIDNEY. BURSITIS SHOULDERS. DISSEMINATED ACTINIC POROKERATOSIS SKIN COND, CHUCKY ARMS. BRUISES EASILY. RT BREAST MASS CURRENTLY. History of Any Multi-Drug Resistant Organisms: None Reported Past Surgical History: Appendectomy, Breast Surgery, Cholecystectomy, Hysterectomy Additional Past Surgical History / Comment(s): Breast implants, laparotomy Past Anesthesia/Blood Transfusion Reactions: Motion Sickness Past Psychological History: Anxiety, PTSD Smoking Status: Former smoker Past Alcohol Use History: Occasional Past Drug Use History: None Reported - Past Family History Father Family Medical History: Myocardial Infarction ([place]) Brother(s) Family Medical History: Myocardial Infarction ([place])
[2023-10-07] MEDS: guaiFENesin 600 MG TABLET.ER PO SCH (21:47)
[2023-10-07] MEDS: APIXABAN 2.5 MG TABLET PO SCH (21:47)
[2023-10-08] MEDS: MULTIVITAMINS, THERA 1 EACH TAB PO SCH (07:43)
[2023-10-08] MEDS: CEFEPIME 2 GM in SODIUM CHLORIDE 0.9% 100 ML IVPB SCH ×2 (07:43→17:11)
[2023-10-08] MEDS: LOSARTAN 50 MG TAB PO SCH (07:43)
[2023-10-08] MEDS: guaiFENesin 600 MG TABLET.ER PO SCH ×3 (07:43→17:20)
[2023-10-08] MEDS: predniSONE 20 MG TAB PO SCH (07:43)
[2023-10-08] MEDS: CHOLECALCIFEROL 25 MCG (1000 IU) TABLET PO SCH (07:43)
[2023-10-08] MEDS: APIXABAN 2.5 MG TABLET PO SCH (07:43)
[2023-10-08] MEDS: carvediloL 12.5 MG TAB PO SCH ×2 (07:50→17:12)
[2023-10-08] MEDS: SYMBICORT 80-4.5 MCG INHALER INHALATION SCH ×3 (09:05→18:38)
[2023-10-08] MEDS: IPRATROPIUM-ALBUTEROL 3 ML NEB INHALATION SCH ×5 (09:06→18:38)
--- NOTE | 2023-10-08 09:50 | XR ---
EXAMINATION TYPE: XR chest 1V DATE OF EXAM: 10/08/2023 7:14 AM CLINICAL INDICATION:Female, 78 years old with history of Follow-up pneumonia; COMPARISON: Chest radiograph from one day prior. TECHNIQUE: XR chest 1V Frontal view of the chest. FINDINGS: Lungs/Pleura: Right midlung airspace opacities are not significantly changed. There is no evidence of pleural effusion, focal consolidation, or pneumothorax. Pulmonary vascularity: Unremarkable. Heart/mediastinum: Cardiomediastinal silhouette is unremarkable. Consultations of the breast implants bilaterally. Musculoskeletal: No acute osseous pathology. IMPRESSION: Stable right midlung reticular opacities. Calcified breast implant capsules noted bilaterally.
[2023-10-08 13:26] VITALS: BP 167/80; RESP 18; TEMP 97.5
--- NOTE | 2023-10-08 14:03 | P.PN ---
Subjective Progress Note Date: 10/08/23 78-year-old female patient with advanced oxygen-dependent COPD and chronic ch jakob a bronchomalacia and chronic immunosuppression related to CLL. The patient currently has active pseudomonal colonization/infection. The patient underwent a bronchoscopy at [facility] and the patient was found to have a quinolone resistant pseudomonas aeruginosa. Noted the patient was being treated with ciprofloxacin an outpatient basis without any major improvement. F or that reason, she was hospitalized for IV antibiotics. The patient had a chest x-ray showed a right midlung infiltrate. She has diminished appetite. She is complaining of generalized weakness and fatigue. She is currently on oxygen 2 L/m nasal cannula, and she has a white cell count of 17.5 with a hemoglobin of 12.7 and the rest of the electrolytes are all stable and within normal limits. Coagulation profile is also within normal limits. The patient was started on IV Zosyn. PICC line will be also ordered for outpatient by treatment. The patient continues to have some yellowish sputum along with ongoing cough and congestion. On today's evaluation of 10/07/2023, the patient is feeling improved compared to yesterday. No new complaints. She is having some liquidy diarrhea, minimal, loose, and this may be related to Zosyn. I attempted assess this patient home with a PICC line and IV antibiotics. Discussed the case with infectious disease and was switched the patient IV cefepime. The PICC line is to be inserted today. No new complaints otherwise for now. On today's evaluation of 10/08/2023, the patient is on IV cefepime regarding pseudomonal growth in her lungs. Note that the patient had another sputum sample collected during this current admission and this was found to be sensitive to quinolones. Nevertheless, the bronchoscopy that was done 2 weeks ago showed a quinolone resistance pseudomonas aeruginosa. Based on that, we decided to discharge this patient home on IV antibiotics and the patient is going to complete a course of IV cefepime 2 g every 12 hours on outpatient basis. The PICC line is inserted. The repeat chest x-ray showed a stable right midlung reticular opacity. She has bilateral breast implants. She remains on 2 L of oxygen by nasal cannula with a pulse ox in the low 90s. Pro-calcitonin level is nonelevated. Stool for C. diff has been negative. Objective - Vital Signs Vital signs: Vital Signs Temp 97.3 F L 10/08/23 07:16 Pulse 88 10/08/23 09:21 Resp 17 10/08/23 07:16 BP 185/80 10/08/23 07:16 Pulse Ox 90 L 10/08/23 07:16 FiO2 Intake & Output 10/07/23 10/08/23 10/08/23 18:59 06:59 18:59 Weight 48.988 kg Other: # Voids 4 3 # Bowel Movements 2 - Exam VITAL SIGNS: 97.6, 86, 18, 145/69, 93% on 2 L GENERAL: BMI 17.4, sitting up. Tired EYES: Pupils equal. Conjunctiva normal. HEENT: External appearance of nose and ears normal, oral cavity grossly normal. NECK: JVD not raised; masses not palpable. HEART: First and second heart sounds are normal; no edema. LUNGS: Respiratory rate normal; decreased breath sound. Occasional crackle , diminished breath sound bilaterally ABDOMEN: Soft, epigastric tenderness, no guarding rigidity, liver spleen not palpable, no masses palpable. PSYCH: [Alert and oriented x3; mood and affect slightly anxious l. MUSCULAR skeletal: Evidence of OA due to loss of subcutaneous fat and muscle mass. Prominent bones. NEUROLOGICAL: Cranial nerves grossly intact; no facial asymmetry, power and sensation grossly intact. LYMPHATICS: No lymph nodes palpable in the axilla and neck - Labs CBC & Chem 7: 10/06/23 10:20 10/06/23 10:20 Labs: Microbiology - Last 24 Hours (Table) 10/06/23 11:49 Gram Stain - Final Sputum Sputum Culture - Final Pseudomonas aeruginosa 10/06/23 10:30 Blood Culture - Preliminary Blood 10/06/23 10:15 Blood Culture - Preliminary Blood Assessment and Plan Plan: Right lung pneumonia likely secondary to pseudomonas aeruginosa, quinolone resistant and the patient has failed outpatient antibiotics with ciprofloxacin. Acute COPD exacerbation secondary to above Chronic COPD with chronic hypoxic respiratory failure, maintain on Trelegy Ellipta on outpatient basis Severe tracheal bronchomalacia CLL with chronic immunosuppression and chronic leukocytosis with thrombo cytopenia, no anemia this point in time Shortness of breath secondary to above Hypertension History of Archer's esophagus with severe gastritis Chronic hypoxic respiratory failure maintain on oxygen 2 L/m nasal cannula History of actinic keratosis Plan Continue IV cefepime and this will be also continued on outpatient basis for a total of 2 weeks PICC line insertion to be done today Repeat chest x-ray in the morning is showing some residual infiltrates in the right upper lobe although somewhat improved compared to the earlier chest x-ray Arrange home antibiotics, likely IV cefepime to be continued on outpatient basis ID consultation is appreciated Watch for any signs of diarrhea, stool for C. diff has been negative We'll continue to follow, possible discharge today once outpatient antibiotic recommendation for this patient.
--- NOTE | 2023-10-08 16:01 | P.PN ---
Subjective Progress Note Date: 10/07/23 Principal diagnosis: Reason for follow-up is Pseudomonas pneumonia Patient is a 78-year-old female with a past medical history ignificant for hypertension COPD chronic lymphocytic leukemia, patient recently did have a bronchoscopy done at [facility] cultures came back positive with quinolone resistant Pseudomonas patient has been admitted to hospital for arrangement of IV antibiotic therapy. On today's evaluation there is 10/07/2023 patient denies having any fever or any chills breathing slightly comfortably currently on 2 L nasal cannula oxygen gretta ent denies having any chest pain she continued to have a cough bringing some greenish sputum, no hemoptysis no abdominal pain however has been complaining of some diarrhea Patient did have white count of 17.5 creatinine 0.70 Objective - Vital Signs Vital signs: Vital Signs Temp 98.0 F 10/07/23 08:00 Pulse 84 10/07/23 12:36 Resp 18 10/07/23 08:00 BP 118/68 10/07/23 08:00 Pulse Ox 94 L 10/07/23 09:27 FiO2 Intake & Output 10/06/23 10/07/23 10/07/23 18:59 06:59 18:59 Weight 48.988 kg 48.988 kg Other: Voiding Method Toilet # Voids 3 - Exam GENERAL DESCRIPTION: Elderly female up n bed in no distress RESPIRATORY SYSTEM: Unlabored breathing , decreased breath sounds at bases HEART: S1 S2 regular rate and rhythm , ABDOMEN: Soft , no tenderness EXTREMITIES: No edema feet - Labs CBC & Chem 7: 10/06/23 10:20 10/06/23 10:20 Labs: Microbiology - Last 24 Hours (Table) 10/06/23 11:49 Gram Stain - Preliminary Sputum Sputum Culture - Preliminary Gram Neg Bacilli Assessment and Plan (1) Pneumonia Current Visit: Yes Status: Acute Code(s): J18.9 - PNEUMONIA, UNSPECIFIED ORGANISM SNOMED Code(s): 344727495 (2) Pseudomonas infection Current Visit: Yes Status: Acute Code(s): A49.8 - OTHER BACTERIAL INFECTIONS OF UNSPECIFIED SITE SNOMED Code(s): 35016762 Plan: 1patient presented to the hospital with increasing shortness of breath and a cough patient did have hypoxemia elevated white count infiltrate on the chest x- ray suspicious for pneumonia and apparently recently did have a bronchoscopy with the BAL culture positive for cipro/levaquin resistant Pseudomonas as per discussion with the pulmonary. 2patient seen to have diarrhea with the Zosyn which will be switched over to cefepime, PICC line has been ordered and outpatient IV antibiotic arrangement in progress Dictation was produced using [employer] dictation software. please excuse any grammatical, word or spelling errors. Time with Patient: Less than 30
--- NOTE | 2023-10-08 16:03 | P.PN ---
Subjective Progress Note Date: 10/08/23 Principal diagnosis: Reason for follow-up is Pseudomonas pneumonia Patient is a 78-year-old female with a past medical history ignificant for hypertension COPD chronic lymphocytic leukemia, patient recently did have a bronchoscopy done at [facility] cultures came back positive with quinolone resistant Pseudomonas patient has been admitted to hospital for arrangement of IV antibiotic therapy. On today's evaluation That is 10/08/2023, patient remains to be afebrile, the patient is breathing slightly comfortably on 2 L nasal cannula oxygen patient denies having any chest pain she continued to have a cough bringing some greenish sputum, no hemoptysis, the patient has having any nausea vomiting abdominal pain and the patient already has improved Patient did have white count of 17.5 creatinine 0.70 as of 10/06/2023 no lab draw today Objective - Vital Signs Vital signs: Vital Signs Temp 97.3 F L 10/08/23 07:16 Pulse 92 10/08/23 12:19 Resp 17 10/08/23 07:16 BP 185/80 10/08/23 07:16 Pulse Ox 90 L 10/08/23 07:16 FiO2 Intake & Output 10/07/23 10/08/23 10/08/23 18:59 06:59 18:59 Weight 48.988 kg Other: # Voids 4 3 # Bowel Movements 2 - Exam GENERAL DESCRIPTION: Elderly female up n bed in no distress RESPIRATORY SYSTEM: Unlabored breathing , decreased breath sounds at bases HEART: S1 S2 regular rate and rhythm , ABDOMEN: Soft , no tenderness EXTREMITIES: No edema feet - Labs CBC & Chem 7: 10/06/23 10:20 10/06/23 10:20 Labs: Microbiology - Last 24 Hours (Table) 10/06/23 11:49 Gram Stain - Final Sputum Sputum Culture - Final Pseudomonas aeruginosa 10/06/23 10:30 Blood Culture - Preliminary Blood 10/06/23 10:15 Blood Culture - Preliminary Blood Assessment and Plan (1) Pneumonia Current Visit: Yes Status: Acute Code(s): J18.9 - PNEUMONIA, UNSPECIFIED ORGANISM SNOMED Code(s): 042095038 (2) Pseudomonas infection Current Visit: Yes Status: Acute Code(s): A49.8 - OTHER BACTERIAL INFECTIONS OF UNSPECIFIED SITE SNOMED Code(s): 86165480 Plan: 1patient presented to the hospital with increasing shortness of breath and a cough patient did have hypoxemia elevated white count infiltrate on the chest x- ray suspicious for pneumonia and apparently recently did have a bronchoscopy with the BAL culture positive for cipro/levaquin resistant Pseudomonas as per discussion with the pulmonary. 2patient seem to have shown clinical improvement and did have improvement in diarrhea after the switch of antibiotics prescription for cefepime has been given to the porter sample case once arranged she will be able to go home from ID standpoint patient already got a PICC line Dictation was produced using [employer] dictation software. please excuse any grammatical, word or spelling errors. Time with Patient: Less than 30
[2023-10-08 16:35] VITALS: PULSE 88
--- NOTE | 2023-10-08 21:16 | P.DS ---
Providers Date of admission: 10/06/23 10:51 Expected date of discharge: 10/08/23 Attending physician: Giovani Winn Consults: 10/06/23 10:46 Consult Physician Routine Consulting Provider: Yessica Youssef Consult Reason/Comments: Pseudomonas lung infection Do you want consulting provider notified?: Yes 10/06/23 10:47 Consult Physician Routine Consulting Provider: Elsie Spangler Consult Reason/Comments: COPD, Pseudomonas Do you want consulting provider notified?: Yes Primary care physician: Anne Marie Palm [facility] Course: Chief Complaint: Shortness of breath This is a very pleasant 78-year-old patient who follows with Dr. Sheba Palm. Chronic stable medical conditions include CLL that she follows with Dr. Perkins, hypertension, osteoarthritis, COPD with Dr. Spangler. Patient on home oxygen 2 L . Patient presents increasingly short of breath. Even with little activity. Has a cough and different colored sputum. Denies any fever and chills. Decreased appetite. Tired. Denies any edema. Patient underwent a bronchoscopy on to October [address] Spangler. Culture him back showing Pseudomonas resistant to multiple organisms. Patient is come in for placement of PICC line and home antibiotics. Patient also on anticoagulation for atrial fibrillation just diagnosed recently. Significant cough. No blood in the sputum. 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 Underwent a bronchoscopy at [facility] was found to have an annual resistant Pseudomonas aeruginosa. He did receive ciprofloxacin as outpatient. She has not complaining of 3-4 BMs a day. Started yesterday. C. difficile be ordered. Patient on IV cefepime. His appetite. Bringing up significant sputum. PICC line placed by Dr. Riley 10/08/2023: Sputum culture culture come back showing Pseudomonas aeruginosa. Patient still bringing up sputum. Discussed with Dr. Spangler from pulmonary. Okay to [place] patient. IDs discharging the patient home on cefepime. Patient follows with Dr. Spangler. An ID. Discussed with nurse. Past medical history to include: COPD, hypertension, CLL, shoulder bursitis, actinic keratosis, , anxiety Social history: Lives with her daughter. Smoked a pack a day for 40 years stopped in 2011. Alcohol occasionally. Physical examination: VITAL SIGNS: Recent 0.5, 97, 18, 16 September 80, 91% on 2 L GENERAL: In bed-sitting up. Tired EYES: Pupils equal. Conjunctiva normal. HEENT: External appearance of nose and ears normal, oral cavity grossly normal. NECK: JVD not raised; masses not palpable. HEART: First and second heart sounds are normal; no edema. LUNGS: Respiratory rate normal; decreased breath sound. Occasional crackle ABDOMEN: Soft, epigastric tenderness, no guarding rigidity, liver spleen not palpable, no masses palpable. PSYCH: [Alert and oriented x3; mood and affect slightly anxious l. MUSCULAR skeletal: Evidence of OA due to loss of subcutaneous fat and muscle mass. Prominent bones. INVESTIGATIONS, reviewed in the clinical context: Sputum culture: Pseudomonas aeruginosa October 06: White count 7.5 hemoglobin 12.7 platelets 136 sodium 139 potassium 4.4 creatinine 0.7 Chest x-ray film personally reviewed by me-infiltrates Telemetry: Atrial fibrillation Assessment and plan: -Pneumonia due to Pseudomonas aeruginosa. Patient's culture from [facility] that showed drug-resistant. Discharge on IV V cefepime. PICC line. Follow-up with Dr. Spangler and ID -Persistent atrial fibrillation, rate controlled Eliquis -COPD in a ex-smoker Continue Symbicort, bronchodilator -Essential hypertension Coreg, losartan -Chronic lymphocytic leukemia Follow CBC. Patient does follow with Dr. Perkins /outpatient. -Actinitic keratosis -Chronic insomnia Remeron -Moderate protein calorie malnutrition from decreased oral intake ensure 3 times a day Disposition: Home Past Medical History Past Medical History: Cancer, COPD, Hypertension, Skin Disorder Additional Past Medical History / Comment(s): Chronic lymphocytic leukemia. CYST RT KIDNEY. BURSITIS SHOULDERS. DISSEMINATED ACTINIC POROKERATOSIS SKIN COND, CHUCKY ARMS. BRUISES EASILY. RT BREAST MASS CURRENTLY. History of Any Multi-Drug Resistant Organisms: None Reported Past Surgical History: Appendectomy, Breast Surgery, Cholecystectomy, Hysterectomy Additional Past Surgical History / Comment(s): Breast implants, laparotomy Past Anesthesia/Blood Transfusion Reactions: Motion Sickness Past Psychological History: Anxiety, PTSD Smoking Status: Former smoker Past Alcohol Use History: Occasional Past Drug Use History: None Reported Plan - Discharge Summary Discharge Rx Participant: No New Discharge Prescriptions: New guaiFENesin [Mucinex] 600 mg PO QID #90 tab Continue Multivitamins, Thera [Multivitamin (formulary)] 1 tab PO DAILY carvediloL [Coreg] 25 mg PO BID Losartan [Cozaar] 50 mg PO DAILY Fluticasone/Umeclidin/Vilanter [Trelegy Ellipta 100-62.5-25] 1 puff INHALATION RT-DAILY predniSONE 20 mg PO DAILY Cholecalciferol [Vitamin D3 (25 Mcg = 1000 Iu)] 50 mcg PO DAILY Omeprazole [PriLOSEC] 20 mg PO AC-BID PRN PRN Reason: acid reflux Albuterol Sulfate [Ventolin HFA] 2 puff INHALATION RT-Q4H PRN PRN Reason: Shortness Of Breath Ipratropium-Albuterol Nebulize [Duoneb 0.5 mg-3 mg/3 ml Soln] 3 ml INHALATION RT-QID PRN PRN Reason: Shortness Of Breath Apixaban [Eliquis] 2.5 mg PO BID Mirtazapine 30 mg PO HS PRN PRN Reason: SLEEP Discharge Medication List Multivitamins, Thera [Multivitamin (formulary)] 1 tab PO DAILY 10/22/18 [History] Albuterol Sulfate [Ventolin HFA] 2 puff INHALATION RT-Q4H PRN 04/24/21 [History] Apixaban [Eliquis] 2.5 mg PO BID 10/06/23 [History] Cholecalciferol [Vitamin D3 (25 Mcg = 1000 Iu)] 50 mcg PO DAILY 10/06/23 [History] Fluticasone/Umeclidin/Vilanter [Trelegy Ellipta 100-62.5-25] 1 puff INHALATION RT-DAILY 10/06/23 [History] Ipratropium-Albuterol Nebulize [Duoneb 0.5 mg-3 mg/3 ml Soln] 3 ml INHALATION RT-QID PRN 10/06/23 [History] Losartan [Cozaar] 50 mg PO DAILY 10/06/23 [History] Mirtazapine 30 mg PO HS PRN 10/06/23 [History] Omeprazole [PriLOSEC] 20 mg PO AC-BID PRN 10/06/23 [History] carvediloL [Coreg] 25 mg PO BID 10/06/23 [History] predniSONE 20 mg PO DAILY 10/06/23 [History] guaiFENesin [Mucinex] 600 mg PO QID #90 tab 10/08/23 [Rx] Follow up Appointment(s)/Referral(s): [facility], [[facility]STAFF] - 10/09/23 [facility], [REFERRING] - 10/08/23 (will deliver tonight between 6- 8PM) Anne Marie Palm MD [Primary Care Provider] - 1-2 days (office closed at time of discharge) Yessica Youssef MD [STAFF PHYSICIAN] - 1 Week Elsie Spangler MD [STAFF PHYSICIAN] - 10/23/23 3:00 pm Patient Instructions/Handouts: Bacterial Pneumonia (DC) Discharge Disposition: HOME WITH HOME HEALTH SERVICES
== END 2023-10-08 18:38 | disposition home health service (06) | DRG 178 ==
LOC: EC 09:26 → 4SSUR 10:51
PROVIDERS: ADMIT Hospitalist; ATTEND Hospitalist
PROC: B5181ZA Fluoroscopy of Superior Vena Cava using Low Osmolar Contrast, Guidance (ICD-10-PCS; principal; 2023-10-07 13:30)
PROC: B548ZZA Ultrasonography of Superior Vena Cava, Guidance (ICD-10-PCS; principal; 2023-10-07 13:30)
PROC: 02HV33Z Insertion of Infusion Device into Superior Vena Cava, Percutaneous Approach (ICD-10-PCS; principal; 2023-10-07 13:30)
DX: J15.1 Pneumonia due to Pseudomonas (principal); C91.10 Chronic lymphocytic leukemia of B-cell type not having achieved remission; Z16.30 Resistance to unspecified antimicrobial drugs; J44.0 Chronic obstructive pulmonary disease with (acute) lower respiratory infection; I48.19 Other persistent atrial fibrillation; Z16.24 Resistance to multiple antibiotics; E44.0 Moderate protein-calorie malnutrition; D84.9 Immunodeficiency, unspecified; J44.1 Chronic obstructive pulmonary disease with (acute) exacerbation; Z68.1 Body mass index [BMI] 19.9 or less, adult; I10 Essential (primary) hypertension; F51.04 Psychophysiologic insomnia; Z99.81 Dependence on supplemental oxygen; F41.9 Anxiety disorder, unspecified; F43.10 Post-traumatic stress disorder, unspecified; J98.09 Other diseases of bronchus, not elsewhere classified; K21.9 Gastro-esophageal reflux disease without esophagitis; K59.00 Constipation, unspecified; L57.0 Actinic keratosis; M19.90 Unspecified osteoarthritis, unspecified site; Z79.01 Long term (current) use of anticoagulants; Z79.899 Other long term (current) drug therapy; Z82.49 Family history of ischemic heart disease and other diseases of the circulatory system; Z90.710 Acquired absence of both cervix and uterus; Z98.82 Breast implant status; Z90.49 Acquired absence of other specified parts of digestive tract; Z79.51 Long term (current) use of inhaled steroids
CPT/HCPCS: 36415; 36573; 71045; 71046; 76937; 80053; 83605; 84145; 85025; 85610; 85730; 87040; 87070; 87077; 87186; 87205; 87324; 93005; 94640; 94667; 94760; 96365; 96366; 99285